=== PATIENT | female | born 1995 | race Two or more races ===

== ENCOUNTER 2017-08-03 19:12 | Emergency (ER) | payer MEDICAID ==
[2017-08-03 19:34] VITALS: TEMP 99
--- NOTE | 2017-08-03 20:39 | EDPHY ---
H & P Time Seen by Provider: 08/03/17 19:26 HPI/ROS: Chief complaint. Short of breath HPI. 22-year-old female with cough and some shortness of breath the for several weeks. It began when she returned from [place] in mid June. She has not had previous history of lung problems. Cough is nonproductive. Mild shortness of breath especially with cough. No fever. No abdominal pain. She feels that her legs are slightly swollen but does not have calf pain. She is not sure when the swelling in her legs started ROS Constitutional. no fever/chills, no weakness Eyes. no problems with vision ENT. no sore throat, no nasal drainage Cardiovascular. no chest pain Respiratory. Cough and shortness of breath Abdominal. no abdominal pain, no nausea/vomiting, no diarrhea . no problems urinating MS. no calf pain/swelling, no neck/back pain, no joint pain Skin. no rash Lymph. no swollen glands Neuro. no headache, no dizziness, no difficulty walking or with speech Past Medical/Surgical History: Hypothyroid Social History: Single, nonsmoker, no alcohol Smoking Status: Never smoked Physical Exam: General Appearance: Alert well-developed female mild distress vital signs significant for blood pressure elevated at 127 Eyes: Pupils equal and round no pallor or injection. ENT, Mouth: Mucous membranes are moist. Respiratory: No retractions. Mild inspiratory expiratory rhonchi Cardiovascular: Regular rate and rhythm. Gastrointestinal: Abdomen is soft and nontender, no masses, bowel sounds normal. Neurological: Awake and alert, sensory and motor exams grossly normal. Skin: Warm and dry, no rashes. Musculoskeletal: Neck is supple nontender. Extremities symmetrical, full range of motion. No obvious edema or swelling to legs. Psychiatric: Patient is oriented X 3, there is no agitation. Constitutional: Initial Vital Signs Temperature (C) 37.2 C 08/03/17 19:25 Heart Rate 90 08/03/17 19:25 Respiratory Rate 16 08/03/17 19:25 Blood Pressure 181/127 H 08/03/17 19:25 O2 Sat (%) 93 08/03/17 19:25 O2 Delivery Mode Room Air Allergies/Adverse Reactions: No Known Allergies Allergy (Verified 08/03/17 19:30) Home Medications: Medication Instructions Recorded Levothyroxine [Synthroid 25 mcg 03/23/14 (*)] Azithromycin [Zithromax] 250 mg PO DAILY #6 tab 08/03/17 Medical Decision Making - Diagnostics Imaging Results: Chest x-ray shows a right lower lobe pneumonia Procedures: Meghan morales ED Course/Re-evaluation: Re-evaluation 9:40 p.m. patient is stable. She and I discussed imaging study results, treatment plan including criteria for return importance of follow-up and further evaluation. She expresses understanding and agreement She shows me blood pressure pills that have been prescribed 1 on August 01 and 1 on August 02 1 his lisinopril and 1 as amlodipine. She has a new diagnosis of hypertension and has never taken blood pressure medications before. She and I discussed taking the amlodipine at but not the lisinopril for 1 week and having her Blood pressure recheck. 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 Pneumonia on chest x-ray new onset hypertension. - Data Points Medications Given: Discontinued Medications Albuterol/Ipratropium (Duoneb) 3 ml IH EDNOW ONE Stop: 08/03/17 20:43 Last Admin: 08/03/17 20:44 Dose: 3 ml Departure - Departure Disposition: Home, Routine, Self-Care Clinical Impression: Pneumonia Qualifiers: Pneumonia type: due to unspecified organism Laterality: right Lung location: lower lobe of lung Qualified Code(s): J18.1 - Lobar pneumonia, unspecified organism Condition: Good Instructions: Community Acquired Pneumonia (ED), Hypertension (ED) Additional Instructions: Drink plenty of fluids and stay hydrated. Tylenol 1000 mg every 6 hr for fever. Zithromax as antibiotic. Only take the amlodipine medication for blood pressure as prescribed. [facility] and have your blood pressure recheck to to see if you really need to blood pressure pills. Return sooner over the weekend for worsening breathing. Referrals: NONE *PRIMARY CARE P,. [Primary Care Provider] - As per Instructions [facility] [Outside] - 5-7 days, call for appt. Prescriptions: Azithromycin [Zithromax] 250 mg PO DAILY #6 tab
[2017-08-03] MEDS ORDERED: IPRATROPIUM/ALBUTEROL 3 ML DEYVIAL IH ONE (20:42)
[2017-08-03 21:00] VITALS: RESP 20
[2017-08-03] MEDS ORDERED: AZITHROMYCIN 250 MG TAB PO ONE (21:54)
[2017-08-03] MEDS ORDERED: ALBUTEROL INH PREPACK MDI TAKEHOME ONE (21:55)
[2017-08-03 22:07] VITALS: BP 164/109; PULSE 86; O2SAT 98
== END 2017-08-03 22:05 | disposition home or self-care (01) ==
DX: J18.1 Lobar pneumonia, unspecified organism (principal)

== ENCOUNTER 2017-08-23 16:30 | Observation (INO) | payer MEDICAID ==
[2017-08-23] MEDS ORDERED: ONDANSETRON 4 MG/2 ML VIAL IVP ONE (17:16)
[2017-08-23] MEDS ORDERED: NS 1,000 ML IV ONE ×2 (17:16→18:07)
[2017-08-23] MEDS ORDERED: HYOSCYAMINE SULFATE 0.125 MG TAB PO ONE (17:16)
[2017-08-23] MEDS ORDERED: LIDOCAINE 2% VISCOUS 15 ML UDCUP PO ONE (17:16)
[2017-08-23] MEDS ORDERED: PANTOPRAZOLE SODIUM 40 MG VIAL IVP ONE (17:16)
[2017-08-23] MEDS ORDERED: MAG HYDROX/AL HYDROX/SIMETH 30 ML UDCUP PO ONE (17:16)
--- NOTE | 2017-08-23 17:25 | EDPHY ---
H & P Stated Complaint: n/v - Personal History LMP (Females 10-55): Over 28 Days Ago Current Tetanus/Diphtheria Vaccine: Yes Current Tetanus Diphtheria and Acellular Pertussis (TDAP): Yes - Medical/Surgical History Hx Asthma: No Hx Chronic Respiratory Disease: No Hx Diabetes: No Hx Cardiac Disease: No Hx Renal Disease: No Hx Cirrhosis: No Hx Alcoholism: No Hx HIV/AIDS: No Hx Splenectomy or Spleen Trauma: No Other PMH: HYPOTHYROIDISM, HTN - Social History Smoking Status: Never smoked HPI/ROS: Chief complaint: Abdominal pain with nausea and vomiting History of present illness: This is a 22-year-old female who presents to the emergency department for evaluation of abdominal pain. She has had associated persistent nausea and vomiting, described as nonbloody, nonbilious. Symptoms began yesterday. They have been persistent. She has been unable to eat or drink anything. She denies fever. She denies diarrhea or constipation. She denies urinary symptoms. Review of systems: A 10 point review of systems was obtained and other than described above was negative (Robert Lebron) - Physical Exam Exam: General Appearance: Alert, nontoxic. Eyes: Pupils equal and round no pallor or injection. ENT, Mouth: Mucous membranes moist. Respiratory: There are no retractions, lungs are clear to auscultation. Cardiovascular: Regular rate and rhythm. Gastrointestinal: Bowel sounds normal. Abdomen is soft and nondistended. Minor tenderness in the upper left and right quadrants. No peritoneal signs. Neurological: Alert and oriented x4. Strength and sensation intact and symmetrical. Skin: Warm and dry, no rashes. Musculoskeletal: Neck is supple non tender. Extremities are symmetrical, full range of motion. Psychiatric: Patient is oriented X 3, there is no agitation. (Robert Lebron) Constitutional: Initial Vital Signs Temperature (C) 37.1 C 08/23/17 16:47 Heart Rate 88 08/23/17 16:47 Respiratory Rate 18 08/23/17 16:47 Blood Pressure 159/119 H 08/23/17 16:47 O2 Sat (%) 99 08/23/17 16:47 O2 Delivery Mode Room Air Allergies/Adverse Reactions: No Known Allergies Allergy (Verified 08/23/17 16:45) Home Medications: Medication Instructions Recorded Carvedilol [Coreg] 12.5 mg PO BIDMEAL 08/23/17 Ferrous Sulfate [Ferrous Sulf 325 325 mg PO DAILY 08/23/17 MG (*)] Levothyroxine [Synthroid 150 mcg 150 mcg PO DAILY06 08/23/17 (*)] amLODIPine BESYLATE [Norvasc 10 mg 10 mg PO DAILY 08/23/17 (*)] hydrALAZINE [Apresoline 50 mg (*)] 50 mg PO TID 08/23/17 Ondansetron Odt [Zofran Odt 4 mg 4 mg PO Q4 #15 tab 08/24/17 (*)] Pantoprazole Sodium [Protonix 40mg 40 mg PO BID #60 tab 08/24/17 (*)] Medical Decision Making - Diagnostics Imaging: Discussed imaging studies w/ faculty i on call medical assistant Radiologist ED Course/Re-evaluation: Patient is discussed with my secondary supervising physician Dr. Mary Driver. Patient presents to the emergency department with nausea and vomiting and abdominal discomfort. Workup is largely unremarkable except for an elevated creatinine. She does have an underlying kidney issue and was recently treated for a hypertensive emergency. However it is not clear as to what her baseline creatinine is. She has been hydrated with no improvement in creatinine. She is having difficulty tolerating oral challenges. She will be admitted for control of symptoms, hydration and observation. Plan has been discussed with the patient who voiced understanding agreement with it. (Robert Lebron) Differential Diagnosis: Included but not limited to gastritis, gastroenteritis, biliary tract disease, pancreatitis, colitis, urinary tract disease, an associated complications (Robert Lebron) Other Provider: The patient was evaluated and managed by the Physician Assistant Child Care Teacher. I discussed the patient's presentation and course with the physician assistant producer and agree with the evaluation. My co-signature indicates that I have reviewed this chart and I agree with the findings and plan of care as documented. I am the secondary supervising physician. (Mary Driver) - Data Points Laboratory Results: Laboratory Results 08/23/17 17:25 08/23/17 19:35 Medications Given: Discontinued Medications Al Hydroxide/Mg Hydroxide (Maalox Susp) 30 ml PO ONCE ONE Stop: 08/23/17 17:17 Last Admin: 08/23/17 17:41 Dose: 30 ml Amlodipine Besylate (Norvasc) 10 mg PO DAILY GARRETT Stop: 02/20/18 08:59 Last Admin: 08/24/17 09:22 Dose: 10 mg Ferrous Sulfate (Ferrous Sulfate) 325 mg PO DAILY GARRETT Stop: 02/20/18 08:59 Last Admin: 08/24/17 09:22 Dose: 325 mg Hydralazine HCl (Apresoline) 50 mg PO TID GARRETT Stop: 02/20/18 08:59 Last Admin: 08/24/17 09:22 Dose: 50 mg Hyoscyamine Sulfate (Levsin, Hyomax-Sl) 0.25 mg PO ONCE ONE Stop: 08/23/17 17:17 Last Admin: 08/23/17 17:41 Dose: 0.25 mg Sodium Chloride (Ns) 1,000 mls @ 0 mls/hr IV EDNOW ONE; Wide Open PRN Reason: Protocol Stop: 08/23/17 17:17 Last Admin: 08/23/17 17:22 Dose: 1,000 mls Sodium Chloride (Ns) 1,000 mls @ 0 mls/hr IV EDNOW ONE; Wide Open PRN Reason: Protocol Stop: 08/23/17 18:08 Last Admin: 08/23/17 18:29 Dose: 1,000 mls Sodium Chloride (Ns) 1,000 mls @ 150 mls/hr IV CONT GARRETT Stop: 02/19/18 21:44 Last Admin: 08/23/17 22:11 Dose: 1,000 mls Levothyroxine Sodium (Synthroid) 150 mcg PO DAILY06 GARRETT Stop: 02/20/18 08:44 Last Admin: 08/24/17 10:33 Dose: Not Given Lidocaine (Lidocaine 2% Viscous) 15 ml PO ONCE ONE Stop: 08/23/17 17:17 Last Admin: 08/23/17 17:41 Dose: 15 ml Ondansetron HCl (Zofran) 4 mg IVP EDNOW ONE Stop: 08/23/17 17:17 Last Admin: 08/23/17 17:40 Dose: 4 mg Pantoprazole Sodium (Protonix) 40 mg IVP EDNOW ONE Stop: 08/23/17 17:17 Last Admin: 08/23/17 17:41 Dose: 40 mg Pantoprazole Sodium (Protonix) 40 mg PO BID GARRETT Stop: 02/20/18 08:59 Last Admin: 08/24/17 09:22 Dose: 40 mg Departure - Departure Disposition: [facility] Clinical Impression: Dehydration, Renal insufficiency Condition: Good
[2017-08-23 17:38] LABS: PLATELET COUNT 271 10^3/uL (150-400)
[2017-08-23] MEDS ORDERED: hydrALAZINE 20 MG/ML VIAL IVP PRN (21:44)
[2017-08-23] MEDS ORDERED: ONDANSETRON DISINTEGRATING 4 MG TAB PO PRN (21:45)
[2017-08-23] MEDS ORDERED: NS 1,000 ML IV SCH (21:45)
[2017-08-23] MEDS ORDERED: ONDANSETRON 4 MG/2 ML VIAL IVP PRN (21:45)
[2017-08-23] MEDS ORDERED: ACETAMINOPHEN 325 MG TAB PO PRN (21:45)
--- NOTE | 2017-08-23 21:53 | PDGENHP ---
History and Physical - Chief Complaint abd pain - History of Present Illness This is a 22 yo female who p/w LUQ and mid epigastric abd pain since yesterday with several episodes of vomiting and inability to keep foods down. She has had minimal oral intake. She denies RUQ pain. [facility] and sent to [facility] ED for HTN urgency. There she reports that she had extensive w/u and was diagnosed with renal disease although she cannot provide details about this. She reports that was started on various BP meds and she has a f/u with a learning coordinator late this month. She does not recall what w/u was done or who the learning coordinator is although she does report cat scans. In the ED she was given IVF, protonix, Levsin, and feels slightly better. Hcg was negative. RUQ US showed hepatomegaly but otherwise unremarkable. Right kidney was visualized and appeared within normal. No GB pathology. Left kidney was not reported on. UA was negative She denies diarrhea or constipation. she denies hx of GERD. She does not have any throat burning sensation. She says she is urinating her normal amount and that it has not been concentrated PMHx: -HTN, unknown etiology -Renal impairment (unknown Cr baseline) -Hypothyroidism -Iron deficiency anemia PSHx: none Soc Hx: non smoker, no etoh, no illicits FmHx: Non contributory Labs/studies: per above History Information - Allergies/Home Medication List Allergies/Adverse Reactions: No Known Allergies Allergy (Verified 08/23/17 16:45) Home Medications: Levothyroxine [Synthroid 25 mcg (*)] 03/23/14 [Last Taken Unknown] Amlodipine Besylate 08/23/17 [Last Taken Unknown] Carvedilol 08/23/17 [Last Taken Unknown] Ferrous Sulfate 08/23/17 [Last Taken Unknown] hydrALAZINE 08/23/17 [Last Taken Unknown] I have personally reviewed and updated: medical history, social history - Social History Smoking Status: Never smoked Review of Systems Review of Systems: ROS: 10pt was reviewed & negative except for what was stated in HPI & below Physical Exam Physical Exam: Temp Pulse Resp BP Pulse Ox 36.9 C 71 18 144/97 H 100 08/23/17 21:17 08/23/17 21:17 08/23/17 21:17 02/01/18 21:17 08/23/17 21:17 Constitutional: no apparent distress, not in pain Eyes: PERRL, EOMI Ears, Nose, Mouth, Throat: moist mucous membranes, hearing normal Cardiovascular: regular rate and rhythym, No edema Respiratory: no respiratory distress, no rales or rhonchi Gastrointestinal: normoactive bowel sounds, tenderness (LUQ and mid epigastric TTP. No RUQ tenderness. No RLQ tenderness) Genitourinary: no bladder fullness Skin: warm Musculoskeletal: full muscle strength Neurologic: AAOx3 Psychiatric: interacting appropriately, not anxious, not encephalopathic Lab Data & Imaging Review 08/23/17 17:25 08/23/17 19:35 WBC 8.15 10^3/uL (3.80-9.50) 08/23/17 17:25 RBC 3.71 10^6/uL (4.18-5.33) L 08/23/17 17:25 Hgb 11.2 g/dL (12.6-16.3) L 08/23/17 17:25 Hct 31.7 % (38.0-47.0) L 08/23/17 17:25 MCV 85.4 fL (81.5-99.8) 08/23/17 17:25 MCH 30.2 pg (27.9-34.1) 08/23/17 17:25 MCHC 35.3 g/dL (32.4-36.7) 08/23/17 17:25 RDW 14.2 % (11.5-15.2) 08/23/17 17:25 Plt Count 271 10^3/uL (150-400) 08/23/17 17:25 MPV 10.9 fL (8.7-11.7) 08/23/17 17:25 Neut % (Auto) 74.3 % (39.3-74.2) H 08/23/17 17:25 Lymph % (Auto) 14.2 % (15.0-45.0) L 08/23/17 17:25 [place] % (Auto) 9.3 % (4.5-13.0) 08/23/17 17:25 Eos % (Auto) 0.7 % (0.6-7.6) 08/23/17 17:25 Baso % (Auto) 0.9 % (0.3-1.7) 08/23/17 17:25 Nucleat RBC Rel Count 0.0 % (0.0-0.2) 08/23/17 17:25 Absolute Neuts (auto) 6.05 10^3/uL (1.70-6.50) 08/23/17 17:25 Absolute Lymphs (auto) 1.16 10^3/uL (1.00-3.00) 08/23/17 17:25 Absolute Monos (auto) 0.76 10^3/uL (0.30-0.80) 08/23/17 17:25 Absolute Eos (auto) 0.06 10^3/uL (0.03-0.40) 08/23/17 17:25 Absolute Basos (auto) 0.07 10^3/uL (0.02-0.10) 08/23/17 17:25 Absolute Nucleated RBC 0.00 10^3/uL (0-0.01) 08/23/17 17:25 Immature Gran % 0.6 % (0.0-1.1) 08/23/17 17:25 Immature Gran # 0.05 10^3/uL (0.00-0.10) 08/23/17 17:25 Sodium 136 mEq/L (135-145) 08/23/17 19:35 Potassium 3.7 mEq/L (3.5-5.2) 08/23/17 19:35 Chloride 104 mEq/L (97-110) 08/23/17 19:35 Carbon Dioxide 21 mEq/l (22-31) L 08/23/17 19:35 Anion Gap 11 mEq/L (8-16) 08/23/17 19:35 BUN 19 mg/dL (7-23) 08/23/17 19:35 Creatinine 2.0 mg/dL (0.6-1.0) H 08/23/17 19:35 Estimated GFR 31 08/23/17 19:35 Glucose 88 mg/dL (70-100) 08/23/17 19:35 Calcium 8.5 mg/dL (8.5-10.4) 08/23/17 19:35 Total Bilirubin 1.2 mg/dL (0.1-1.4) 08/23/17 17:25 Conjugated Bilirubin 0.3 mg/dL (0.0-0.5) 08/23/17 17:25 Unconjugated Bilirubin 0.9 mg/dL (0.0-1.1) 08/23/17 17:25 AST 26 IU/L (14-46) 08/23/17 17:25 ALT 40 IU/L (9-52) 08/23/17 17:25 Alkaline Phosphatase 104 IU/L (38-126) 08/23/17 17:25 Total Protein 7.0 g/dL (6.3-8.2) 08/23/17 17:25 Albumin 4.1 g/dL (3.5-5.0) 08/23/17 17:25 Lipase 121 IU/L (23-300) 08/23/17 17:25 Beta HCG, Qual NEGATIVE 08/23/17 17:25 Urine Color PALE YELLOW 08/23/17 16:50 Urine Appearance CLEAR 08/23/17 16:50 Urine pH 8.0 (5.0-7.5) H 08/23/17 16:50 Ur Specific [place] 1.004 (1.002-1.030) 08/23/17 16:50 Urine Protein 2+ (NEGATIVE) H 08/23/17 16:50 Urine Ketones NEGATIVE (NEGATIVE) 08/23/17 16:50 Urine Blood NEGATIVE (NEGATIVE) 08/23/17 16:50 Urine Nitrate NEGATIVE (NEGATIVE) 08/23/17 16:50 Urine Bilirubin NEGATIVE (NEGATIVE) 08/23/17 16:50 Urine Urobilinogen NEGATIVE EU (0.2-1.0) 08/23/17 16:50 Ur Leukocyte Esterase NEGATIVE (NEGATIVE) 08/23/17 16:50 Urine RBC 1-3 /hpf (0-3) 08/23/17 16:50 Urine WBC 1-3 /hpf (0-3) 08/23/17 16:50 Ur Epithelial Cells TRACE /lpf (NONE-1+) 08/23/17 16:50 Urine Bacteria 1+ /hpf (NONE SEEN) H 08/23/17 16:50 Urine Glucose 1+ (NEGATIVE) H 08/23/17 16:50 Assessment & Plan Assessment: #Abd pain of unclear etiology #Nause and vomiting, improving #Hepatomegaly on imaging, normal LFT's #Dehydration, improving #HTN #likely chronic renal failure, no elevation of BUN #Anemia, normal MCV, on iron supplementation #Hypothyroidism Plan: Observation Her Cr is likely at baseline but we will need to check records in the a.m. She already has f/u with a Production Inspector. the Family is obtaining the physicians name. I will defer additional w/u other than urine studies for now Cont with BP meds, hydralazine IV PRN elevated BP Start Protonix BID. Etiology is unclear. She no longer is reporting N/V after receiving IV hydration. Will cont with IV hydration for now. Antiemetics PRN Hold the Iron as this could be causing some abd discomfort, although doubtful. She does have slight anemia, but MCV is normal.
[2017-08-23 23:15] LABS: INR 1.14 (0.83-1.16); PROTIME(PATIENT) 14.8 SEC (12.0-15.0)
[2017-08-24 05:24] LABS: PLATELET COUNT 217 10^3/uL (150-400)
[2017-08-24] MEDS ORDERED: LEVOTHYROXINE 150 MCG TAB PO SCH (08:45)
[2017-08-24] MEDS ORDERED: PANTOPRAZOLE SODIUM 40 MG TAB PO SCH (09:00)
[2017-08-24] MEDS ORDERED: FERROUS SULFATE 325 MG TAB PO SCH (09:00)
[2017-08-24 11:47] VITALS: BP 132/93; PULSE 80; RESP 18; TEMP 98.6; O2SAT 97
--- NOTE | 2017-08-24 16:31 | GDS ---
[f rep st] DISCHARGE SUMMARY DISCHARGE DIAGNOSES: 1. Hypertension. 2. Abdominal pain. 3. Nausea and vomiting. 4. Hepatomegaly. 5. Dehydration. 6. Likely, chronic renal failure. 7. Anemia. 8. Hypothyroidism. STUDIES AND PROCEDURES DONE: Abdominal ultrasound. PHYSICAL EXAM: GENERAL: The patient is alert. VITAL SIGNS: Afebrile at 37, pulse is 80, respirato ry rate is 18, blood pressure is 132/93. She is saturating 97% on room air. I have seen and evaluat ed the patient on the day of discharge. HOSPITAL COURSE: The patient is a 22-year-old female who presented to the emergency room with compla ints of abdominal pain with nausea and vomiting. She was evaluated and diagnosed with: 1. Abdominal pain. Etiology of this is unclear; however, it is completely resolved. She is tolerat ing a regular renal diet. She has had no further bouts of nausea and vomiting, and her pain is compl etely gone. 2. Hepatomegaly on imaging. The patient does have normal LFTs, and will follow up in the outpatient setting with [facility]. 3. Dehydration. This has resolved with IV fluids. 4. Hypertension. This is a new diagnosis for the patient. The etiology of her hypertension is uncl ear and requires further workup in the outpatient setting. Her blood pressure has been well managed during this hospitalization. She is able to tolerate her regular antihypertensive medications and wi ll continue them at the time of disposition. 5. Chronic renal failure. This is in the setting of severe hypertension, which is again a new diagn osis. She did receive a consultation previously from Nephrology. Her creatinine is 2, which is like ly her baseline. She will follow up on 09/12/2017, with a wholesale representative whom she has previously sched uled with. I have expressed to her to continue aggressive hydration. She has also met with the alanis moreno to continue to follow a renal diet in the outpatient setting. She understands the severity of t his. I have educated her with the auto inspection specialist, and she is in agreement to follow up in the o utpatient setting. 6. Anemia, again in the setting of iron deficiency and chronic renal failure. She has been on iron replacement and will have this monitored outside the hospital. 7. Hypothyroidism. Again, her replacement has been continued. DISPOSITION: The patient will be discharged home independently with her family. She has returned to baseline. DISCHARGE MEDICATIONS: I provided her a prescription for Zofran as well as Protonix 40 mg twice galilea y. Other medications have not been adjusted during this hospitalization. FOLLOWUP: She will follow up with [facility] on Sunday, as previously scheduled, as well as he r cardiology appointment and the wholesale representative on the . Again, I have educated and met with the luz cotton, with the auto inspection specialist and her parents. /[id number]/MODL
--- NOTE | 2017-08-24 17:39 | ASDISCHSUM ---
Discharge Information Plan Status:Home with No Needs Medically Cleared to Leave: Discharge Date:08/24/2017 01:11 PM CM D/C Disposition:Home, Routine, Self-Care ADT D/C Disposition:Home, Routine, Self-Care Projected Discharge Date:08/24/2017 01:11 PM Transportation at D/C:Family Discharge Delay Reason: Follow-Up Date:08/24/2017 01:11 PM Discharge Slot: Final Diagnosis: Placement Information Patient Contact Information Contact Name:MEENU Relationship:Father Address: City: [facility] Phone: [facility] Code: Email: Financial Information Financial Class:MD Primary Plan Desc:MEDICAID HE[employer] [place] FOR[employer] Primary Plan Number:[id number] Secondary Plan Desc: Secondary Plan Number: Assessment Information Intervention Information
[2017-08-24] MEDS ORDERED: CARVEDILOL 6.25 MG TAB PO SCH (18:00)
[2017-08-24] MEDS ORDERED: NON-FORMULARY NEW DRUG (Carvedilol [Coreg] 12.5 MG) PO SCH (18:00)
== END 2017-08-24 13:11 | disposition home or self-care (01) ==
LOC: F3E 21:10
PROVIDERS: ADMIT Family Medicine; ATTEND Family Medicine
DX: R10.9 Unspecified abdominal pain (principal); R11.2 Nausea with vomiting, unspecified; E86.0 Dehydration; R16.0 Hepatomegaly, not elsewhere classified; N18.9 Chronic kidney disease, unspecified; I10 Essential (primary) hypertension; D64.9 Anemia, unspecified; E03.9 Hypothyroidism, unspecified
CPT/HCPCS: 76705; G0378; 96374; J2405

== ENCOUNTER 2018-07-29 08:07 | Inpatient (IN) | payer MEDICAID ==
--- NOTE | 2018-07-29 09:06 | EDPHY ---
H & P Stated Complaint: fever/cough in [place], 24hr drive yest, SOB and bilat leg swell Source: Patient, Old records Exam Limitations: No limitations - Personal History Current Tetanus/Diphtheria Vaccine: Unsure - Medical/Surgical History Hx Asthma: No Hx Chronic Respiratory Disease: No Hx Diabetes: No Hx Cardiac Disease: No Hx Renal Disease: No Hx Cirrhosis: No Hx Alcoholism: No Hx HIV/AIDS: No Hx Splenectomy or Spleen Trauma: No Other PMH: HYPOTHYROIDISM, HTN - Social History Smoking Status: Never smoked Time Seen by Provider: 07/29/18 09:03 HPI/ROS: HPI: This is a 23-year-old female who presents with Chief Complaint: fever/cough in [place], 24hr drive yest, SOB and bilat leg swell Location: Chest Quality: Cough Duration: Several days Signs and Symptoms: + fever, no nausea, no vomiting, no diarrhea, no urinary symptoms, no chest pain, + shortness of breath, no wheezing, no sore throat, no neck stiffness, no joint pain, no swollen glands, no ear pain, no rash Timing: Acute, constant Severity: Moderate Context: Patient has a history of hypothyroidism, hypertension, chronic kidney disease secondary to uncontrolled blood pressure presents today with several day history of fever and nonproductive cough with associated shortness of breath and bilateral leg swelling. She recently drove 24 hr yesterday from [place] to [facility]. She was placed on new blood pressure medications while in [place] but has not taking blood pressure medications this morning. She reports that she did receive her influenza vaccine. Patient complains of abdominal bloating and swelling. Chart review shows that admission in August showed uncontrolled hypertension which was a new diagnosis along with chronic kidney disease. Creatinine baseline appears to be around 2. Ultrasound did not showed mild hepatomegaly. Modifying Factors: See above Comment: ROS: A comprehensive 10 system review of systems is otherwise negative aside from elements mentioned in the history of present illness. MEDICAL/SURGICAL/SOCIAL HISTORY: Medical history: Hypothyroidism, hypertension, chronic kidney disease Surgical history: Denies Social history: Nonsmoker, denies drug, alcohol, tobacco use. Family history noncontributory. CONSTITUTIONAL: Ill but nontoxic-appearing young adult female, awake and alert, no obvious distress HEENT: Atraumatic and normocephalic, PERRL, EOMI. Nares patent; no rhinorrhea; no nasal mucosal edema. Tympanic membranes clear. Oropharynx clear, no exudate and moist pink mucosa. Airway patent. No lymphadenopathy. No meningismus. Cardiovascular: Normal S1/S2, regular rate, regular rhythm, without rub or gallop. + murmur appreciated PULMONARY/CHEST: Symmetrical and nontender. Clear to auscultation bilaterally. Good air movement. No accessory muscle usage. Dry cough noted ABDOMEN: Soft, nondistended, nontender, no rebound, no guarding, no peritoneal signs, no masses or organomegaly. No CVAT. EXTREMITIES: 2/2 pulses, strength 5/5, no deformities, no clubbing, no cyanosis. 2+ pitting edema to mid tibia bilateral lower extremities NEUROLOGICAL: no focal neuro deficits. GCS 15. SKIN: Warm and dry, no erythema. no rash. Good capillary refill. (Megha Echols) Constitutional: Initial Vital Signs Temperature (C) 36.4 C 07/29/18 08:10 Heart Rate 72 07/29/18 08:10 Respiratory Rate 16 07/29/18 08:10 Blood Pressure 160/107 H 07/29/18 08:10 O2 Sat (%) 96 07/29/18 08:10 O2 Delivery Mode Room Air Allergies/Adverse Reactions: No Known Allergies Allergy (Verified 07/29/18 08:10) Home Medications: Medication Instructions Recorded Levothyroxine [Synthroid 150 mcg 150 mcg PO DAILY06 08/23/17 (*)] hydrALAZINE [Apresoline 50 mg (*)] 50 mg PO TID 08/23/17 Carvedilol [Coreg (*)] 25 mg PO DAILY 07/29/18 Verapamil ER [Calan SR/ER 180MG 180 mg PO DAILY 07/29/18 (*)] Medical Decision Making ED Course/Re-evaluation: Vital signs reviewed and show elevated blood pressure upon arrival. No hypoxia , respiratory distress. IV access, laboratory studies including lactic acid, chest x-ray, urinalysis, influenza swabs ordered 1015: Chest x-ray per Dr. Perry shows cardiomegaly any recommends an echocardiogram, peribronchial thickening and left lower lobe infiltrate 1019: Blood cultures and IV Rocephin and Zithromax ordered 1022: Labs reviewed. No leukocytosis, H&H 7.4/21.7 normocytic type, lactic acid 0.8, sodium 128, potassium 2.9, creatinine 4.0 Given 1 L normal saline and p.o. Potassium 40 mEq ED decision to consult hospitalist. Spoke with Breanne who kindly agrees to admit patient to Dr. Lees on step-down unit with telemetry. 1052: Positive influenza a 1155: ProBNP is 94,800. IV fluids given due to acute on chronic renal failure with community-acquired pneumonia. Will definitely need echocardiogram inpatient. This patient was seen under the supervision of my secondary supervising physician. I evaluated care for this patient independently. Discussed this patient with Dr. Driver who did not see the patient. (Megha Echols) Differential Diagnosis: Adult fever including but not limited to viral syndromes including influenza, urinary tract infection, pneumonia and sepsis. (Megha Echols) Other Provider: The patient was evaluated and managed by the Phys[facility] Specialist. I discussed the patient's presentation and course with the physician intellectual property legal assistant and agree with the evaluation. My co-signature indicates that I have reviewed this chart and I agree with the findings and plan of care as documented. I am the secondary supervising physician. (Mary Driver) - Data Points Laboratory Results: Laboratory Results 07/29/18 08:50 07/29/18 10:05 Microbiology Results: MICROBIOLOGY 07/29/18 10:35 Blood Blood Culture - Preliminary Medications Given: Amlodipine Besylate (Norvasc) 5 mg PO BID GARRETT Stop: 01/26/19 20:59 Last Admin: 07/31/18 07:57 Dose: 5 mg Benzonatate (Tessalon Pearles) 200 mg PO TID PRN PRN Reason: Cough, Mild Stop: 01/25/19 23:32 Last Admin: 07/30/18 20:06 Dose: 200 mg Furosemide (Lasix Injection) 40 mg IVP DAILY GARRETT Stop: 01/27/19 08:59 Last Admin: 07/31/18 07:57 Dose: 40 mg Heparin Sodium (Porcine) (Heparin Sc Injection) 5,000 unit SC Q8 GARRETT Stop: 01/25/19 13:59 Last Admin: 07/30/18 05:46 Dose: 5,000 unit Hydralazine HCl (Apresoline) 50 mg PO TID GARRETT Stop: 01/26/19 15:59 Last Admin: 07/31/18 07:58 Dose: 50 mg Levothyroxine Sodium (Synthroid) 150 mcg PO DAILY06 [facility] Stop: 01/26/19 09:59 Last Admin: 07/31/18 06:36 Dose: 150 mcg Oseltamivir Phosphate (Tamiflu Oral Suspension) 30 mg PO DAILY [facility] Stop: 08/03/18 09:01 Last Admin: 07/31/18 08:05 Dose: 30 mg Sodium Bicarbonate (Na Bicarb) 1,300 mg PO BID [facility] Stop: 01/25/19 20:59 Last Admin: 07/31/18 07:57 Dose: 1,300 mg Discontinued Medications Amlodipine Besylate (Norvasc) 5 mg PO DAILY [facility] Stop: 01/25/19 15:14 Last Admin: 07/30/18 08:27 Dose: 5 mg Carvedilol (Coreg) 6.25 mg PO BIDMEAL [facility] Stop: 01/25/19 17:59 Last Admin: 07/30/18 08:27 Dose: 6.25 mg Carvedilol (Coreg) 6.25 mg PO ONCE ONE Stop: 07/30/18 09:31 Last Admin: 07/30/18 09:45 Dose: 6.25 mg Carvedilol (Coreg) 12.5 mg PO BIDMEAL [facility] Stop: 01/26/19 17:59 Last Admin: 07/31/18 07:57 Dose: 12.5 mg Carvedilol (Coreg) 12.5 mg PO ONCE ONE Stop: 07/31/18 11:01 Last Admin: 07/31/18 11:36 Dose: 12.5 mg Furosemide (Lasix Injection) 20 mg IVP ONCE ONE Stop: 07/29/18 23:31 Last Admin: 07/29/18 23:31 Dose: 20 mg Furosemide (Lasix Injection) 40 mg IVP ONCE ONE Stop: 07/30/18 13:36 Last Admin: 07/30/18 14:49 Dose: 40 mg Hydralazine HCl (Apresoline) 25 mg PO Q6H PRN PRN Reason: SBP Greater Than 160 Stop: 01/25/19 15:13 Last Admin: 07/30/18 05:48 Dose: 25 mg Azithromycin 500 mg/ Dextrose 255 mls @ 255 mls/hr IV EDNOW ONE PRN Reason: Protocol Stop: 07/29/18 11:17 Last Admin: 07/29/18 11:41 Dose: 255 mls Ceftriaxone Sodium 2 gm/ (Sodium Chloride) 50 mls @ 100 mls/hr IV EDNOW ONE PRN Reason: Protocol Stop: 07/29/18 10:47 Last Admin: 07/29/18 11:41 Dose: 50 mls Sodium Chloride (Ns) 1,000 mls @ 0 mls/hr IV EDNOW ONE; Wide Open PRN Reason: Protocol Stop: 07/29/18 10:38 Last Admin: 07/29/18 10:57 Dose: 1,000 mls Magnesium Sulfate/Dextrose (Magnesium Sulf 1 Gm (Premix)) 100 mls @ 100 mls/hr IV ONCE ONE Stop: 07/29/18 18:18 Last Admin: 07/29/18 18:18 Dose: 100 mls Ondansetron HCl (Zofran) 4 mg IVP Q4HRS PRN PRN Reason: Nausea/Vomiting, Can't Take PO Stop: 01/25/19 11:23 Last Admin: 07/30/18 08:27 Dose: 4 mg Potassium Chloride (Klor-Con) 40 meq PO ONCE ONE Stop: 07/29/18 10:38 Last Admin: 07/29/18 10:57 Dose: 40 meq Potassium Chloride (Klor-Con) 40 meq PO ONCE ONE Stop: 07/29/18 17:24 Last Admin: 07/29/18 18:18 Dose: 40 meq Departure - Departure Disposition: [facility] Inpatient Acute Clinical Impression: Community acquired pneumonia, Normocytic anemia, not due to blood loss, Hypokalemia, Hyponatremia, Hypertensive cardiomegaly, Influenza A Acute on chronic renal failure Qualifiers: Acute renal failure type: unspecified Chronic kidney disease stage: unspecified stage Qualified Code(s): N17.9 - Acute kidney failure, unspecified Condition: Fair
[2018-07-29 09:11] LABS: PLATELET COUNT 257 10^3/uL (150-400)
[2018-07-29] MEDS ORDERED: AZITHROMYCIN IV 500 MG in D5W 250 ML IV ONE (10:18)
[2018-07-29] MEDS ORDERED: POTASSIUM CL 20 MEQ TAB PO ONE ×2 (10:37→17:23)
[2018-07-29] MEDS ORDERED: NS 1,000 ML IV ONE (10:37)
[2018-07-29] MEDS ORDERED: ONDANSETRON DISINTEGRATING 4 MG TAB PO PRN (11:24)
[2018-07-29] MEDS ORDERED: ONDANSETRON 4 MG/2 ML VIAL IVP PRN (11:24)
--- NOTE | 2018-07-29 12:50 | PDGENHP ---
History and Physical - Chief Complaint swelling, shortness of breath - History of Present Illness Kailey Lund is a 23 year old female with pmh of persistent hypertension, hypothyroid and CKD who presents to the Er with complaints of lower extremity swelling along with cough, shortness of breath and abdominal bloating. she says that over the last 1-2 weeks she has had progressive leg swelling along with some abdominal distension and progressive shortness of breath. Her shortness of breath is primarily with exertion. she has had some cough which is mostly non productive. she denied any orthopnea, or PND. She was just in [place] for the last few weeks in [place], and while there developed an ear infection and URI infection. She saw a physician there and was given a Rx for keflex and otic abx drops. Her ear infection has gotten better but she does not feel that her breathing or swelling has gotten better. she does not have any chest pain. she denied any NV, diarrhea, dysuria, hematuria, melena, hematochezia or other symptoms. History Information - Allergies/Home Medication List Allergies/Adverse Reactions: No Known Allergies Allergy (Verified 07/29/18 08:10) Home Medications: Levothyroxine [Synthroid 150 mcg (*)] 150 mcg PO DAILY06 08/23/17 [Last Taken ] hydrALAZINE [Apresoline 50 mg (*)] 50 mg PO TID 08/23/17 [Last Taken 07/28/18] Carvedilol [Coreg (*)] 25 mg PO DAILY 07/29/18 [Last Taken 07/28/18] Verapamil ER [Calan SR/ER 180MG (*)] 180 mg PO DAILY 07/29/18 [Last Taken ] I have personally reviewed and updated: family history, medical history, social history, surgical history - Past Medical History hypertension Additional medical history: hypothyroid, CKD - Surgical History Reports: no pertinent surgical hx - Family History Positive for: non-pertinent - Social History Smoking Status: Never smoked Alcohol Use: None Drug Use: None Review of Systems Review of Systems: ROS: 10pt was reviewed & negative except for what was stated in HPI & below Physical Exam Physical Exam: Temp Pulse Resp BP Pulse Ox 36.7 C 76 16 168/124 H 98 07/29/18 11:44 07/29/18 11:44 07/29/18 11:44 07/29/18 11:44 07/29/18 11:44 Constitutional: no apparent distress, appears nourished, not in pain Eyes: PERRL, anicteric sclera, EOMI Ears, Nose, Mouth, Throat: moist mucous membranes, hearing normal, ears appear normal, no oral mucosal ulcers Cardiovascular: No edema Peripheral Pulses: 2+: dorsalis-pedis (R), dorsalis-pedis (L) Respiratory: no respiratory distress, other (crackles at bases BL) Gastrointestinal: normoactive bowel sounds, soft, non-tender abdomen, no palpable masses Genitourinary: no bladder fullness, no bladder tenderness Skin: warm, normal color, no rashes or abrasions, no fluctuance, no induration, No mottled Musculoskeletal: full muscle strength, no muscle tenderness, normal joint ROM, no joint effusions Neurologic: AAOx3, CN II-XII Intact Psychiatric: interacting appropriately, not anxious, not encephalopathic, thought process linear Lymph, Heme, Immunologic: no cervical LAD, no supraclavicular LAD Lab Data & Imaging Review 07/29/18 15:31 07/29/18 15:31 WBC 9.45 10^3/uL (3.80-9.50) 07/29/18 08:50 RBC 2.63 10^6/uL (4.18-5.33) L 07/29/18 08:50 Hgb 7.4 g/dL (12.6-16.3) L 07/29/18 08:50 Hct 21.7 % (38.0-47.0) L 07/29/18 08:50 MCV 82.5 fL (81.5-99.8) 07/29/18 08:50 MCH 28.1 pg (27.9-34.1) 07/29/18 08:50 MCHC 34.1 g/dL (32.4-36.7) 07/29/18 08:50 RDW 15.1 % (11.5-15.2) 07/29/18 08:50 Plt Count 257 10^3/uL (150-400) 07/29/18 08:50 MPV 10.3 fL (8.7-11.7) 07/29/18 08:50 Neut % (Auto) 85.8 % (39.3-74.2) H 07/29/18 08:50 Lymph % (Auto) 8.3 % (15.0-45.0) L 07/29/18 08:50 Yates % (Auto) 4.7 % (4.5-13.0) 07/29/18 08:50 Eos % (Auto) 0.0 % (0.6-7.6) L 07/29/18 08:50 Baso % (Auto) 0.2 % (0.3-1.7) L 07/29/18 08:50 Nucleat RBC Rel Count 0.0 % (0.0-0.2) 07/29/18 08:50 Absolute Neuts (auto) 8.12 10^3/uL (1.70-6.50) H 07/29/18 08:50 Absolute Lymphs (auto) 0.78 10^3/uL (1.00-3.00) L 07/29/18 08:50 Absolute Monos (auto) 0.44 10^3/uL (0.30-0.80) 07/29/18 08:50 Absolute Eos (auto) 0.00 10^3/uL (0.03-0.40) L 07/29/18 08:50 Absolute Basos (auto) 0.02 10^3/uL (0.02-0.10) 07/29/18 08:50 Absolute Nucleated RBC 0.00 10^3/uL (0-0.01) 07/29/18 08:50 Immature Gran % 1.0 % (0.0-1.1) 07/29/18 08:50 Immature Gran # 0.09 10^3/uL (0.00-0.10) 07/29/18 08:50 VBG Lactic Acid 0.8 mmol/L (0.7-2.1) 07/29/18 10:05 Sodium 128 mEq/L (135-145) L 07/29/18 10:05 Potassium 2.9 mEq/L (3.5-5.2) L 07/29/18 10:05 Chloride 100 mEq/L (97-110) 07/29/18 10:05 Carbon Dioxide 20 mEq/l (22-31) L 07/29/18 10:05 Anion Gap 8 mEq/L (6-14) 07/29/18 10:05 BUN 66 mg/dL (7-23) H 07/29/18 10:05 Creatinine 4.0 mg/dL (0.6-1.0) H 07/29/18 10:05 Estimated GFR 14 07/29/18 10:05 Glucose 90 mg/dL (70-100) 07/29/18 10:05 Calcium 7.6 mg/dL (8.5-10.4) L 07/29/18 10:05 Total Bilirubin 0.7 mg/dL (0.1-1.4) 07/29/18 10:05 Conjugated Bilirubin 0.4 mg/dL (0.0-0.5) 07/29/18 10:05 Unconjugated Bilirubin 0.3 mg/dL (0.0-1.1) 07/29/18 10:05 AST 44 IU/L (14-46) 07/29/18 10:05 ALT 35 IU/L (9-52) 07/29/18 10:05 Alkaline Phosphatase 137 IU/L (38-126) H 07/29/18 10:05 NT-Pro-B Natriuret Pep 71034 pg/mL (0-125) H 07/29/18 10:05 Total Protein 5.4 g/dL (6.3-8.2) L 07/29/18 10:05 Albumin 2.6 g/dL (3.5-5.0) L 07/29/18 10:05 Lipase 51 IU/L (23-300) 07/29/18 10:05 Beta HCG, Qual NEGATIVE 07/29/18 10:05 Urine Color PALE YELLOW 07/29/18 12:10 Urine Appearance CLEAR 07/29/18 12:10 Urine pH 6.0 (5.0-7.5) 07/29/18 12:10 Ur Specific [place] 1.009 (1.002-1.030) 07/29/18 12:10 Urine Protein 2+ (NEGATIVE) H 07/29/18 12:10 Urine Ketones NEGATIVE (NEGATIVE) 07/29/18 12:10 Urine Blood NEGATIVE (NEGATIVE) 07/29/18 12:10 Urine Nitrate NEGATIVE (NEGATIVE) 07/29/18 12:10 Urine Bilirubin NEGATIVE (NEGATIVE) 07/29/18 12:10 Urine Urobilinogen NEGATIVE EU (0.2-1.0) 07/29/18 12:10 Ur Leukocyte Esterase NEGATIVE (NEGATIVE) 07/29/18 12:10 Urine RBC NONE SEEN /hpf (0-3) 07/29/18 12:10 Urine WBC 1-3 /hpf (0-3) 07/29/18 12:10 Ur Epithelial Cells TRACE /lpf (NONE-1+) 07/29/18 12:10 Urine Bacteria TRACE /hpf (NONE SEEN) H 07/29/18 12:10 Urine Mucus TRACE /lpf (NONE-1+) 07/29/18 12:10 Urine Glucose NEGATIVE (NEGATIVE) 07/29/18 12:10 Nasal Influenza A PCR FLU A DETECTED (NEGATIVE) H 07/29/18 09:12 Nasal Influenza B PCR NEGATIVE FOR FLU B (NEGATIVE) 07/29/18 09:12 Visualized and Interpreted Chest x-ray results: Yes Chest X-Ray results: other (cardiomegaly, infiltrate) Assessment & Plan Assessment: Acute congestive heart failure- BNP of 94,000 with cardiomegaly and 2+ pitting edema in a 23 year old female now with creatinine of 4. ECG with LVH. no hx of known CHF by chart review but does have resistant hypertension. Concern for hypertensive cardiomyopathy and now decompensation -TTE now -cardiology consultation -telemetry -I/O, daily weights, cardiac diet Acute on chronic renal failure (Acute)- baseline creatinine appears to be around 2. now up to 4. recently on abx so could be AIN, or cardiorenal, or worsening renal function from poorly controlled HTN. -checking urine protein/creatinine -renal consult -renal ultrasound Pneumonia- flu swab positive for influenz A. I reviewed her chest x ray and she has cardiomegaly, and a L lung infiltrate. Most likely due to flu. normal white count and normal procal in setting of positive flu swab likely represents viral pna. hold further abx and monitor. given CAP coverage in er -monitor sats -no white count flu positive -tamiflu HTN- takes coreg 25 qday, hydralazine 25 tid, and verapamil 180 Qd. says she is compliant and is still hypertensive in the ER. -continue home medications -PRN hydralazine -telemetry add hydralazine and norvasc per renal Influenza- positive flu swab Hypokalemia (Acute)- potassium ordered. monitor on telemetry, repeat K in 6 hours. Hyponatremia (Acute)- patient appears fluid overloaded, likely hypervolemic hyponatremia from fluid overload. Should correct with diuresis. Urine studies pending. -lasix 20iv -urine studies pending -monitor sodium closely Normocytic anemia, not due to blood loss (Acute)- no evidence of bleed. H/H down to 02/09. May be due to renal disease along with dilutional. -check fecal occult --repeat h/h -give 1 unit -lasix with blood Hypothyroid- cont home synthroid PPX- SCDs, Heparin Fluids- None Lytes-replete K, monitor Na, check ca nutrition- renal cardiac Cor- Full Dispo- inpatient PCU for CHF, CEDRIC, anemia, flu
--- NOTE | 2018-07-29 13:50 | PDMN ---
Medical Necessity Medical necessity: MCG 190 Heart Failure: 23 yo w/ c/o SOB, cough, LE and abd swelling. Dx testing reveals new acute CHF w/ BNP 94K and acute on chronic renal fx w/ creat 4 up from baseline of 2 and CAP w/ +influenza A. Pt noted to also be hyponatremic 128 and hypokalemic 2.9. Admit to IP status on tele for new CHF w/ severe electrolyte abnormalities, acute renal fx and pneumonia. Hx HTN, CKD, hypothyroid
--- NOTE | 2018-07-29 14:54 | PDCONSULT ---
Airplane Captain Note: RENAL CONSULT NOTE - Chief Complaint Shortness of breath, LE edema - History of Present Illness The patient is a 23 y/o F with a known h/o hypothyroidism and HTN who presented to the ED c/o increased LE edema, cough, trouble breathing. She is in town from [place] and states that she just visited [place] and developed a URI and took keflex about 2 weeks ago. She is also now diagnosed with influenza A. She states that her swelling has worsened over the past 2 weeks. She has been treated for HTN and CKD for about 1 year and saw a tobacco flavorer 2x and then forgot to follow-up. She has changed anti-hypertensives several times at [facility], however reports that she "tries" to take her meds. She has no h/o DM, however her father is diabetic and also has a tobacco flavorer. She denies other family h/o renal disease, SLE, etc. She denies any use of NSAIDs or other drugs. She was moved to PCU for prolonged QT this am. History Information - Allergies/Home Medication List No Known Allergies Allergy Home Medications: Levothyroxine [Synthroid 150 mcg (*)] 150 mcg PO DAILY06 08/23/17 [Last Taken ] hydrALAZINE [Apresoline 50 mg (*)] 50 mg PO TID 08/23/17 [Last Taken 07/28/18] Carvedilol [Coreg (*)] 25 mg PO DAILY 07/29/18 [Last Taken 07/28/18] Verapamil ER [Calan SR/ER 180MG (*)] 180 mg PO DAILY 07/29/18 [Last Taken ] - Past Medical History hypothyroid, HTN, CKD - Surgical History Reports: no pertinent surgical hx - Family History Positive for: - Social History Smoking Status: Never smoked Alcohol Use: None Drug Use: None Review of Systems Review of Systems: ROS: 10pt was reviewed & negative except for what was stated in HPI & below Objective: Temp Pulse Resp BP Pulse Ox 36.7 C 76 16 168/124 H 98 07/29/18 11:44 07/29/18 11:44 07/29/18 11:44 07/29/18 11:44 07/29/18 11:44 Physical Exam: Gen: A+Ox3, NAD HEENT: EOMI, MMM NECK: Supple RESP: CTA b/l, no wheezing, upper airway cough CV: RRR, no murmurs ABDOMEN: Soft, NT EXT: 2+ edema bl SKIN: No rashes or lesions NEURO: Non-focal WBC 9.45 10^3/uL (3.80-9.50) 07/29/18 08:50 RBC 2.63 10^6/uL (4.18-5.33) L 07/29/18 08:50 Hgb 7.4 g/dL (12.6-16.3) L 07/29/18 08:50 Hct 21.7 % (38.0-47.0) L 07/29/18 08:50 MCV 82.5 fL (81.5-99.8) 07/29/18 08:50 MCH 28.1 pg (27.9-34.1) 07/29/18 08:50 MCHC 34.1 g/dL (32.4-36.7) 07/29/18 08:50 RDW 15.1 % (11.5-15.2) 07/29/18 08:50 Plt Count 257 10^3/uL (150-400) 07/29/18 08:50 MPV 10.3 fL (8.7-11.7) 07/29/18 08:50 Neut % (Auto) 85.8 % (39.3-74.2) H 07/29/18 08:50 Lymph % (Auto) 8.3 % (15.0-45.0) L 07/29/18 08:50 [place] % (Auto) 4.7 % (4.5-13.0) 07/29/18 08:50 Eos % (Auto) 0.0 % (0.6-7.6) L 07/29/18 08:50 Baso % (Auto) 0.2 % (0.3-1.7) L 07/29/18 08:50 Nucleat RBC Rel Count 0.0 % (0.0-0.2) 07/29/18 08:50 Absolute Neuts (auto) 8.12 10^3/uL (1.70-6.50) H 07/29/18 08:50 Absolute Lymphs (auto) 0.78 10^3/uL (1.00-3.00) L 07/29/18 08:50 Absolute Monos (auto) 0.44 10^3/uL (0.30-0.80) 07/29/18 08:50 Absolute Eos (auto) 0.00 10^3/uL (0.03-0.40) L 07/29/18 08:50 Absolute Basos (auto) 0.02 10^3/uL (0.02-0.10) 07/29/18 08:50 Absolute Nucleated RBC 0.00 10^3/uL (0-0.01) 07/29/18 08:50 Immature Gran % 1.0 % (0.0-1.1) 07/29/18 08:50 Immature Gran # 0.09 10^3/uL (0.00-0.10) 07/29/18 08:50 VBG Lactic Acid 0.8 mmol/L (0.7-2.1) 07/29/18 10:05 Sodium 128 mEq/L (135-145) L 07/29/18 10:05 Potassium 2.9 mEq/L (3.5-5.2) L 07/29/18 10:05 Chloride 100 mEq/L (97-110) 07/29/18 10:05 Carbon Dioxide 20 mEq/l (22-31) L 07/29/18 10:05 Anion Gap 8 mEq/L (6-14) 07/29/18 10:05 BUN 66 mg/dL (7-23) H 07/29/18 10:05 Creatinine 4.0 mg/dL (0.6-1.0) H 07/29/18 10:05 Estimated GFR 14 07/29/18 10:05 Glucose 90 mg/dL (70-100) 07/29/18 10:05 Calcium 7.6 mg/dL (8.5-10.4) L 07/29/18 10:05 Magnesium 1.9 mg/dL (1.6-2.3) 07/29/18 12:25 Total Bilirubin 0.7 mg/dL (0.1-1.4) 07/29/18 10:05 Conjugated Bilirubin 0.4 mg/dL (0.0-0.5) 07/29/18 10:05 Unconjugated Bilirubin 0.3 mg/dL (0.0-1.1) 07/29/18 10:05 AST 44 IU/L (14-46) 07/29/18 10:05 ALT 35 IU/L (9-52) 07/29/18 10:05 Alkaline Phosphatase 137 IU/L (38-126) H 07/29/18 10:05 NT-Pro-B Natriuret Pep 58036 pg/mL (0-125) H 07/29/18 10:05 Total Protein 5.4 g/dL (6.3-8.2) L 07/29/18 10:05 Albumin 2.6 g/dL (3.5-5.0) L 07/29/18 10:05 Lipase 51 IU/L (23-300) 07/29/18 10:05 Procalcitonin 1.64 ng/mL (0.02-0.10) H 07/29/18 12:25 Beta HCG, Qual NEGATIVE 07/29/18 10:05 Urine Color PALE YELLOW 07/29/18 12:10 Urine Appearance CLEAR 07/29/18 12:10 Urine pH 6.0 (5.0-7.5) 07/29/18 12:10 Ur Specific [place] 1.009 (1.002-1.030) 07/29/18 12:10 Urine Protein 2+ (NEGATIVE) H 07/29/18 12:10 Urine Ketones NEGATIVE (NEGATIVE) 07/29/18 12:10 Urine Blood NEGATIVE (NEGATIVE) 07/29/18 12:10 Urine Nitrate NEGATIVE (NEGATIVE) 07/29/18 12:10 Urine Bilirubin NEGATIVE (NEGATIVE) 07/29/18 12:10 Urine Urobilinogen NEGATIVE EU (0.2-1.0) 07/29/18 12:10 Ur Leukocyte Esterase NEGATIVE (NEGATIVE) 07/29/18 12:10 Urine RBC NONE SEEN /hpf (0-3) 07/29/18 12:10 Urine WBC 1-3 /hpf (0-3) 07/29/18 12:10 Ur Epithelial Cells TRACE /lpf (NONE-1+) 07/29/18 12:10 Urine Bacteria TRACE /hpf (NONE SEEN) H 07/29/18 12:10 Urine Mucus TRACE /lpf (NONE-1+) 07/29/18 12:10 Ur Random Creatinine 47.7 mg/dL 07/29/18 12:10 U Random Total Protein 265 mg/dL (0-11) H 07/29/18 12:10 Ur Random Sodium 34 mEq/L (30-90) 07/29/18 12:10 Ur Random Potassium 28.9 mEq/L (0.5-35.0) 07/29/18 12:10 Urine Glucose NEGATIVE (NEGATIVE) 07/29/18 12:10 Nasal Influenza A PCR FLU A DETECTED (NEGATIVE) H 07/29/18 09:12 Nasal Influenza B PCR NEGATIVE FOR FLU B (NEGATIVE) 07/29/18 09:12 Imaging: Renal US pending. Assessment/Plan: The patient is a 23 y/o F with a known h/o CKD who presents with volume overload and CEDRIC and nephrotic syndrome. CEDRIC with CKD III -baseline Cr reportedly 2.0, now up to 4.0 -ordered renal US -will order serologies for nephrotic syndrome (alb <3, UPC >5g, edema) -check lipid panel -consider renal biopsy pending US tomorrow pending BP's -no indication for HD, continue to monitor HTN/vol -BP's still 160's systolic -start amlodipine 5mg -added hydralazine 25mg po prn Acidosis -start oral bicarb 1300mg po BID -monitor Anemia -Hb 7.4 -likely needs to start EPO -check iron studies BMD -check PTH, vitamin D, phos -renal diet Prolonged QT with volume overload -holding lasix for now given CEDRIC -agree with holding fluids and dilt -potassium ok, would check Mg and ionized calcium -monitor on telemetry -avoid zofran or other QT prolonging drugs -echo pending Thank you for this consult, will continue to follow. Please contact if ?'s. #[phone] Avni Hood, DO [facility]
[2018-07-29] MEDS: amLODIPine BESYLATE 5 MG TAB PO SCH (16:02)
[2018-07-29] MEDS: HEPARIN 5,000 UNIT/0.5 ML INJ SC SCH ×2 (16:03→20:05)
--- NOTE | 2018-07-29 16:52 | ECHO ---
[email or web address] [address] [address] Main: [phone] Fax: Transthoracic Echocardiogram Name: AIXA GRIFFITH MR#: [id number] Study Date: 07/29/2018 Study Time: 02:24 PM Date of : 1995 Age: 23 year(s) Height: 175.3 cm (69 in.) Weight: 90.72 kg (200 lb.) BSA: 2.07 m2 Gender: Female Examination: Echo Indication: Fluid overload/BNP of 94, 000 Image Quality: Adequate Contrast: Requested by: Montrell Garcia BP: 157 mmHg/108 mmHg Heart Rate: Rhythm: Indication: Fluid overload/BNP of 94, 000 Procedure Staff Chefs: Veronica Wood [facility] [place] Reading Physician: Carli Parish MD Requesting Provider: Conclusions: Normal size left ventricle. Severe concentric LV hypertrophy. Mildly reduced systolic LV function. The ejection fraction is estimated to be 40-45 %. Grade 1 diastolic dysfunction (abnormal relaxation). Normal size right ventricle. Normal RV function. The left atrium is severely dilated. The right atrium is mildly dilated. Mild mitral valve regurgitation is present. Mild tricuspid regurgitation is present. The pulmonary artery pressure is mildly increased. RVSP is 46mmHG.. Trivial anterior pericardial effusion. No echocardiographic evidence of hemodynamic compromise. There is no previous echocardiogram for comparison. Measurements: Chambers Valvular Assessment AV/MV Valvular Assessment TV/PV Normal Normal Normal Name Value Range Name Value Range Name Value Range Ao Gosia (MM): 3.0 cm (2.2 cm-3.7 AV meanP mmHg ( - ) TR Vmax: 3.04 mm/s ( - ) cm) MV E Vmax: 0.94 m/s ( - ) TR PGmax: 37 mmHg ( - ) IVSd (2D): 1.9 cm (0.6 cm-1.1 MV A Vmax: 0.32 m/s ( - ) syst. PAP: 42 mmHg ( - ) cm) MV E/A: 2.94 ( - ) LVDd (2D): 5.2 cm (3.9 cm-5.3 cm) LVDs (2D): 4.2 cm (2.1 cm-4 cm) LVPWd (2D): 1.4 cm ( - ) Patient: AIXA GRIFFITH Study Date: 07/29/2018 Page 1 of 2 02:24 PM LVOTd 1.9 cm 1.9 cm mm LVEF (BP): 53 % (>=55 %) EF Range: 40-45 % Continued Measurements: Chambers Valvular Assessment AV/MV Valvular Assessment TV/PV Name Value Name Value Name Value LADs: 6.0 cm MV E' Septal: 0.07 m/s CVP (est.): 5 mmHg LADs Lon.3 cm MV E/E' Septal: 13.20 LA Area: 37.3 cm2 MV E/E' Lateral: 12.70 LA Volume: 150 ml LA Volume Index: 72.5 ml/m2 Additional Vessels Name Value Ao Ascendin.3 cm Findings: Left Ventricle: Normal size left ventricle. Severe concentric LV hypertrophy. Mildly reduced systolic LV function. The ejection fraction is estimated to be 40-45 %. Grade 1 diastolic dysfunction (abnormal relaxation). Right Ventricle: Normal size right ventricle. Normal RV function. Left Atrium: The left atrium is severely dilated. Right Atrium: The right atrium is mildly dilated. Mitral Valve: The mitral valve is normal in appearance. Mild mitral valve regurgitation is present. Aortic Valve: The aortic valve is normal in appearance and function. The aortic valve is tri-leaflet. Trivial aortic valve regurgitation. Tricuspid Valve: The tricuspid valve is normal in appearance and function. Mild tricuspid regurgitation is present. The pulmonary artery pressure is mildly increased. RVSP is 46mmHG.. Pulmonic Valve: The pulmonic valve is normal in appearance and function. Trivial pulmonic valve regurgitation. Aorta: The aorta is normal. Pericardium: Trivial anterior pericardial effusion. No echocardiographic evidence of hemodynamic compromise. (No Signature Object) Patient: AIXA GRIFFITH Study Date: 07/29/2018 Page 2 of 2 02:24 PM [id number]
[2018-07-29 17:08] LABS: HEPATITIS A ANTIBODY IGM (BCH) NEGATIVE (NEGATIVE); HEPATITIS B CORE AB IGM NEGATIVE (NEGATIVE); HEPATITIS B SURFACE ANTIGEN NEGATIVE (NEGATIVE)
[2018-07-29 17:17] LABS: HEPATITIS C ANTIBODY TOTAL NEGATIVE (NEGATIVE)
[2018-07-29] MEDS ORDERED: MAGNESIUM SULF 1 GM/DEXTROSE 100 ML IV ONE (17:19)
[2018-07-29] MEDS: CARVEDILOL 6.25 MG TAB PO SCH (18:14)
[2018-07-29] MEDS: hydrALAZINE 25 MG TAB PO PRN (20:05)
[2018-07-29] MEDS: SODIUM BICARBONATE 650 MG TAB PO SCH (20:05)
[2018-07-29] MEDS ORDERED: FUROSEMIDE 20 MG/2 ML VIAL IVP ONE (23:30)
[2018-07-29] MEDS: BENZONATATE 100 MG CAP PO PRN (23:43)
[2018-07-30 05:23] LABS: PLATELET COUNT 315 10^3/uL (150-400)
[2018-07-30] MEDS: HEPARIN 5,000 UNIT/0.5 ML INJ SC SCH (05:46)
[2018-07-30] MEDS: hydrALAZINE 25 MG TAB PO PRN (05:48)
--- NOTE | 2018-07-30 06:17 | GCON ---
CARDIOLOGY CONSULTATION DATE OF CONSULTATION: 07/29/2018 CHIEF COMPLAINT: Lower extremity edema, heart failure. HISTORY OF PRESENT ILLNESS: We were asked by Dr. Haque to visit with the patient. The patient is a 23-year-old female with a 1-year diagnosis of hypertension. As an outpatient, she has been on verapa mil, carvedilol, and hydralazine. Over the past few weeks, she has been visiting [place]. While there, she developed ear congestion, cough, fever. She was given a painkiller called Metamizole and has als o been on a version of Keflex for about 4 days. She describes a dry cough, fever, and worsening lower extremity edema as well as some abdominal distention. Over the past 24 hours, she has driven from [place] to [place]. Because of worsening cough, dyspnea, a nd edema, she presented to the ER. She was found to be significantly anemic. Creatinine up to 4. BNP markedly elevated at 94,000. She was hypertensive to 160/107. She was therefore admitted for further evaluation and management. She has been seen by the renal service. She reports that she is not having any chest pain. She is still quite dyspneic. She does state that s he has been taking her antihypertensive medications, but one of them caused lower extremity edema, pr esumably the verapamil. She has not had palpitations or syncope. REVIEW OF SYSTEMS: As noted above. She states that she is urinating a lot. She has not had any obvio us bleeding. ALLERGIES: No known drug allergies. PAST MEDICAL HISTORY: 1. Hypertension. 2. Chronic renal insufficiency. 3. Hypothyroidism. 4. Anemia. OUTPATIENT MEDICATIONS: Pain reliever and antibiotic from [place] as listed above. Coreg 25 mg p.o. d aily, hydralazine 50 mg 3 times a day, Synthroid 150 mcg daily, and verapamil 180 mg daily. FAMILY HISTORY: Negative for known heart disease or renal disease. SOCIAL HISTORY: She does not drink alcohol. She does not smoke cigarettes. PHYSICAL EXAM: VITALS: Blood pressure 157/108, heart rate 76, oxygen saturation 90% on room air. She is afebrile. GENERAL: Mildly dyspneic young female. HEENT: Sclerae Mucous membranes are moist. Normocephalic, atraumatic. CARDIOVASCULAR: JVP is approximately 12 cm of water. Regular rate a nd rhythm without murmur, rub or gallop. LUNGS: Clear to auscultation bilaterally without wheeze, rho nchi, or rales. ABDOMEN: Nontender. Minimally distended. No obvious bruits, masses, hepatosplenomegal y. EXTREMITIES: Warm and well perfused. Trace to 1+ pitting edema. NEURO: Alert and oriented x3 witho ut gross focal neurologic deficits. Appropriate mood and affect. LABORATORY DATA: White count 9.54, hematocrit 21.7, platelets 257, left shift. Elevated reticulocyte count. VBG: Lactic acid 0.8. Sodium potassium 3.2 which is up from 2.9 in the emergency department. Chloride 98, bicarb 20, BUN 64, creatinine 4.1. She had a creatinine of 2.0 in August o last year. Iron is 19, TIBC and iron saturation 7, ferritin 171. AST, ALT normal. Alkal ine phosphatase 137, BNP 94,800, albumin 2.6, lipase 51. Procalcitonin 1.64. Beta HCG negative. PTH 2 74. Urinalysis shows significant protein of 265. Flu A positive. HENRY screen and complement pending. H epatitis panel and HIV pending. Streptozyme test less than 25, which is negative. EKG reviewed by me shows sinus rhythm with prolonged QT and diffuse nonspecific ST-T wave abnormaliti es. LVH. Echocardiogram reviewed by me, severe concentric LVH. Mildly reduced ejection fraction of 40% to 45%. Mild mitral regurgitation. Trivial pericardial effusion. Chest x-ray reviewed by me: Patchy alveolar consolidation left lower lobe. Mild pulmonary venous hype rtension. ASSESSMENT AND PLAN: A 23-year-old female with known history of chronic renal insufficiency and hype rtension, now presents with influenza, worsening renal function, significant volume overload, and new diagnosis of cardiomyopathy as well as poorly controlled hypertension. 1. Cardiomyopathy and acute systolic heart failure: Etiology is likely hypertension. Agree with amlo dipine and p.r.n. hydralazine. Will add back moderate dose carvedilol with intent to up titrate. Diur etics on hold given acute renal failure, but she is not getting intravenous fluids. Will probably req uire some diuretics. Angiotensin-converting enzyme inhibitor, angiotensin receptor katie, spironola ctone are currently contraindicated. Even though the etiology of her cardiomyopathy is likely related to systemic hypertension, she does have significant LV hypertrophy, and would consider further evalu ation for infiltrative cardiomyopathy. 2. Acute on chronic renal failure with nephrotic range proteinuria: Renal ultrasound pending. Serolo dustyes including HENRY, hepatitis, HIV pending. Appreciate renal assistance. It seems likely, given her y oung age, that she had underlying renal disease that then caused hypertension versus essential hypert ension causing her renal dysfunction. May need renal biopsy. 3. Hypertension: Currently on amlodipine and p.r.n. hydralazine. Add Coreg. Renal ultrasound, also c diana for renal artery stenosis. 4. Prolonged QT interval: Likely related to hypokalemia. Will replete potassium carefully. Also have given empiric magnesium. Continue telemetry. Repeat EKG. Avoid Zofran, azithromycin, and any other Q T prolonging drugs. Of note, she did receive an empiric dose of azithromycin in the emergency departm ent. 5. Influenza: Droplet precautions. 6. Anemia: Likely chronic related to her renal disease. Iron studies also suggest some component of iron deficiency. Thank you for allowing us to participate in this patient's care. Will follow with you. /[id number]/MODL
[2018-07-30] MEDS: SODIUM BICARBONATE 650 MG TAB PO SCH ×2 (08:27→20:07)
[2018-07-30] MEDS: amLODIPine BESYLATE 5 MG TAB PO SCH ×2 (08:27→20:06)
[2018-07-30] MEDS: CARVEDILOL 6.25 MG TAB PO SCH (08:27)
[2018-07-30] MEDS ORDERED: CARVEDILOL 6.25 MG TAB PO ONE (09:30)
--- NOTE | 2018-07-30 10:00 | HOSPPROG ---
Hospitalist Progress Note Assessment/Plan: 35 yo F w htn a/w influenza A and acute on chronic renal failure, htn influenza: start tamiflu 30 daily htn: acute on chronic restart home hydral carvedilol started increase norvasc to 5 bid hold dilt she is quite young for htn to be the source of her renal failure concentric LVH s/o longstanding htn needs eval for JULIO CESAR goal sbp 160-180 renal: ultrasound s/o medical renal disease no personal or FH of lupus, no rash or arthritis needs biopsy no active sediment not diabetic ?LLL infiltrate: agree w observation off abx proph: add sc heparin dispo: inpt Subjective: case d/w dr sargent. feels unwel. hypertensive Objective: Vital Signs Temp Pulse Resp BP Pulse Ox 37.2 C 104 H 28 H 202/151 H 95 07/30/18 07:55 07/30/18 07:55 07/30/18 07:55 07/30/18 07:55 07/30/18 07:55 Laboratory Results 07/30/18 04:15 07/30/18 04:15 07/29/18 07/30/18 07/31/18 05:59 05:59 05:59 Intake Total 3150 Output Total 1100 Balance 2049 - Physical Exam Constitutional: no apparent distress, appears nourished Eyes: PERRL, anicteric sclera Ears, Nose, Mouth, Throat: moist mucous membranes, hearing normal Cardiovascular: regular rate and rhythym, no murmur, rub, or gallop, edema, No systolic murmur Respiratory: no respiratory distress, no rales or rhonchi Gastrointestinal: normoactive bowel sounds, soft, non-tender abdomen Genitourinary: No oliveira in urethra Skin: warm, normal color Musculoskeletal: full muscle strength Neurologic: AAOx3, sensation intact bilaterally Psychiatric: interacting appropriately ICD10 Worksheet Patient Problems: Problems Problem Status Onset Acute on chronic renal failure Acute Community acquired pneumonia Acute Hypertensive cardiomegaly Acute Hypokalemia Acute Hyponatremia Acute Influenza A Acute Normocytic anemia, not due to blood loss Acute Dehydration Acute Renal insufficiency Acute
[2018-07-30] MEDS: OSELTAMIVIR 6 MG/ML UDSYR PO SCH (10:27)
[2018-07-30] MEDS: LEVOTHYROXINE 150 MCG TAB PO SCH (10:27)
--- NOTE | 2018-07-30 11:58 | PDCARPN ---
Cardiology Progress Note Assessment/Plan: Assessment/plan: 23-year-old female with a 1 year history of diagnosed hypertension and chronic renal insufficiency. She was admitted on July 29 with dyspnea, lower extremity edema, hypertension, volume overload, and significantly worsening renal function. She was also found to have influenza A. Ejection fraction 40%. BNP 95129. 1. Acute systolic heart failure: This is likely hypertensive heart disease given significant LVH on echo. Could also be some contribution from her viral illness. Will check troponin to ensure that she does not have a myocardial process. Highly doubt coronary disease. Did respond to a single dose of IV Lasix. Will discuss with Nephrology further diuresis which, in my opinion, would be helpful. Could also consider right heart catheterization. Continue Coreg and up titrate as needed. Serjio inhibitor, angiotensin receptor katie, and spironolactone are contraindicated in the setting of her acute renal failure. 2. Acute on chronic renal insufficiency with nephrotic range proteinuria: Followed by Nephrology. Considering renal biopsy. Would also like to evaluate for renal artery stenosis. Creatinine slightly elevated today, potassium improved. Of note, she was taking a medication that she received in [place] that had some nonsteroidal properties. HENRY, complement pending. 3. Hypertension: Amlodipine has been up titrated. Hydralazine has been added. Coreg has been up titrated. Goal systolic 160. Unclear whether she has just had long-standing hypertension causing renal disease or primary renal disease now with secondary hypertension. Needs renal artery stenosis evaluation as above. Would also favor diuresis. 4. Prolonged QT interval: This has improved with correction of her hypokalemia , however remains prolonged. She did receive IV magnesium yesterday as well. Follow on telemetry. Avoid QT prolonging medications. She gives no history of syncope or palpitations. 5. Anemia: Labs consistent with iron deficiency. Also some contribution from her chronic renal insufficiency. No active bleeding. Will probably need Depot. 6. Hyponatremia and hypokalemia: Hyponatremia did improve a bit after some diuresis. Follow closely. 7. Influenza a: She is on Tamiflu. 8. Abnormal LFTs: This may be congestive hepatopathy. Hepatitis panel negative. 9. Abnormal chest x-ray with left lower lobe infiltrate: Cough has been dry. She is not hypoxic. Follow clinically off antibiotics. 07/30/18 12:22 Subjective: She reports improved dyspnea. She has been able to eat but did have some nausea this morning without vomiting. She has not noticed any blood in her urine or her stool. Reviewed/Discussed With: hospitalist Objective: Vital Signs (8 Hrs) Temp Pulse Resp BP Pulse Ox 07/30/18 07:55 37.2 C 104 H 28 H 202/151 H 95 07/30/18 04:00 36.8 C 100 19 175/139 H 93 Intake/Output (24 Hrs) 07/29/18 07/30/18 07/31/18 05:59 05:59 05:59 Intake Total 3150 Output Total 1100 Balance 2049 Intake: Oral (ml) 1750 IV Infused (ml) 1400 Output: Urine (ml) 1100 Toilet 1100 Other: Weight 90.718 kg 100.7 kg Number of Voids 1 Toilet 1 Number of Stools Toilet 1 Mildly dyspneic with talking. JVP 10 cm water. Regular rate and rhythm with soft early systolic murmur at the base. Lungs clear to auscultation bilaterally without wheezes rhonchi rales Trace to 1+ pitting edema of both ankles as well as trace to 1+ pedal edema bilaterally Neuro alert and oriented x3 without gross focal neurologic deficits. Appropriate mood and affect. Result Diagrams: 07/30/18 04:15 07/30/18 04:15 Telemetry: Sinus rhythm. Occasional PVCs. ICD10 Worksheet Patient Problems: Problems Problem Status Onset Acute on chronic renal failure Acute Community acquired pneumonia Acute Hypertensive cardiomegaly Acute Hypokalemia Acute Hyponatremia Acute Influenza A Acute Normocytic anemia, not due to blood loss Acute Dehydration Acute Renal insufficiency Acute
[2018-07-30] MEDS ORDERED: PROMETHAZINE HCL 25 MG/ML INJ IV PRN (13:24)
[2018-07-30] MEDS ORDERED: PROMETHAZINE HCL 25 MG TAB PO PRN (13:25)
[2018-07-30] MEDS ORDERED: FUROSEMIDE 40 MG/4 ML VIAL IVP ONE (13:35)
--- NOTE | 2018-07-30 16:15 | ASMTCMCOM ---
CM Note CM Note Notes: Kailey is a 23 year old female with Hypertension, hypothyroid, and CKD. Presents acute congestive heart failure, acute chronic renal failure, and influenza. Discharge needs are TBD at this time. CM to follow. CM contacted [facility] to see if they can provide additional supports. CM to follow Plan: TBD Date Signed: 07/30/2018 04:14 PM Electronically Signed By:VENITA Blum
--- NOTE | 2018-07-30 16:53 | SOAPPROG ---
SOAP Progress Note Assessment/Plan: Assessment: 1. arf: b/l creat reportedly 2 a year ago, now presents with creat 4 and nephrotic-range proteinuria. Kidneys quite large on u/s, suggesting infiltrative process (DM, amyloid, HIV, scleroderma, etc). Will need bx but bp needs to be improved prior; this is being addressed. No asa products. Serologies pending. Unfortunately, this likely reflects progressive ckd over past year and I am not optimistic that her renal dz will be treatable regardless of dx. Nonetheless I think bx is warranted given her age. I described the procedure in detail, along with risk of bleeding. She is agreeable. Once sbp consistantly < 160 will proceed with this. 2. htn: I suspect this is chronic and has probably accelerated progression of her renal dz. Probably large volume component, agree with diuresis. Good response to iv lasix earlier today, will start daily dose in am and consider increasing to bid. 3. Overload: cont diuresis as above. 4. anemia: follow, transfuse prn. Will add paraprotein eval despite her age, rebel in light of large kidneys. Would hold epo until bp controlled. Plan: 07/30/18 16:45 07/30/18 16:54 Subjective: Feeling better. Had to sleep sitting up in chair last night. Has made 900ml uo s /p lasix earlier today. Objective: Vital Signs Temp Pulse Resp BP Pulse Ox 36.3 C 85 19 181/132 H 92 07/30/18 16:00 07/30/18 16:00 07/30/18 16:00 07/30/18 16:00 07/30/18 16:00 Laboratory Results 07/30/18 04:15 07/30/18 04:15 07/29/18 07/30/18 07/31/18 05:59 05:59 05:59 Intake Total 3150 Output Total 1100 1150 Balance 2049 -1149 Physical Exam - Physical Exam General Appearance: no apparent distress Respiratory: decreased breath sounds Cardiac/Chest: regular rate, rhythm Abdomen: non-tender Extremities: swelling ICD10 Worksheet Patient Problems: Problems Problem Status Onset Acute on chronic renal failure Acute Community acquired pneumonia Acute Hypertensive cardiomegaly Acute Hypokalemia Acute Hyponatremia Acute Influenza A Acute Normocytic anemia, not due to blood loss Acute Dehydration Acute Renal insufficiency Acute
[2018-07-30] MEDS: CARVEDILOL 25 MG TAB PO SCH (17:50)
[2018-07-30] MEDS: BENZONATATE 100 MG CAP PO PRN (20:06)
[2018-07-31 05:04] LABS: PLATELET COUNT 327 10^3/uL (150-400)
[2018-07-31] MEDS: LEVOTHYROXINE 150 MCG TAB PO SCH (06:36)
--- NOTE | 2018-07-31 06:37 | CPEKG ---
Test Reason : OPEN Blood Pressure : / mmHG Vent. Rate : 080 BPM Atrial Rate : 080 BPM P-R Int : 166 ms QRS Dur : 101 ms QT Int : 448 ms P-R-T Axes : 046 025 092 degrees QTc Int : 517 ms Sinus rhythm biatrial enlargement Left ventricular hypertrophy Borderline T abnormalities, lateral leads Prolonged QT interval Confirmed by Guido Morris ([id number]) on 07/31/2018 6:36:30 AM Referred By: Confirmed By:Guido Morris
--- NOTE | 2018-07-31 06:45 | CPEKG ---
Test Reason : OPEN Blood Pressure : / mmHG Vent. Rate : 095 BPM Atrial Rate : 095 BPM P-R Int : 163 ms QRS Dur : 103 ms QT Int : 410 ms P-R-T Axes : 063 003 096 degrees QTc Int : 516 ms Sinus rhythm Left atrial enlargement LVH with secondary repolarization abnormality Prolonged QT interval Confirmed by Guido Morris ([id number]) on 07/31/2018 6:45:12 AM Referred By: Confirmed By:Guido Morris
[2018-07-31] MEDS: CARVEDILOL 25 MG TAB PO SCH ×2 (07:57→17:50)
[2018-07-31] MEDS: amLODIPine BESYLATE 5 MG TAB PO SCH ×2 (07:57→23:37)
[2018-07-31] MEDS: SODIUM BICARBONATE 650 MG TAB PO SCH ×2 (07:57→23:37)
[2018-07-31] MEDS: OSELTAMIVIR 6 MG/ML UDSYR PO SCH (08:05)
[2018-07-31] MEDS ORDERED: FUROSEMIDE 40 MG/4 ML VIAL IVP SCH (09:00)
--- NOTE | 2018-07-31 10:54 | HOSPPROG ---
Hospitalist Progress Note Assessment/Plan: 35 yo F w htn a/w influenza A and acute on chronic renal failure, htn influenza: start tamiflu 30 daily htn: volume overloaded increase carvedilol bid norvasc tid hydralazine needs diuresis volume overload: R heart cath and lasix drip bid chemistries d/w dr sargent renal: ultrasound s/o medical renal disease no personal or FH of lupus, no rash or arthritis needs biopsy no active sediment not diabetic ?LLL infiltrate: agree w observation off abx proph: add sc heparin dispo: inpt Subjective: case d/w dr sargent. cr increased w diuresis. no CP Objective: Vital Signs Temp Pulse Resp BP Pulse Ox 36.8 C 93 20 146/86 H 94 07/31/18 07:28 07/31/18 07:28 07/31/18 07:28 07/31/18 10:43 07/31/18 07:28 Laboratory Results 07/31/18 04:15 07/31/18 04:15 07/30/18 07/31/18 08/01/18 05:59 05:59 05:59 Intake Total 3150 1850 Output Total 1100 2800 Balance 2050 -950 - Physical Exam Constitutional: no apparent distress, appears nourished Eyes: PERRL, anicteric sclera Ears, Nose, Mouth, Throat: moist mucous membranes, hearing normal Cardiovascular: regular rate and rhythym, no murmur, rub, or gallop, edema Respiratory: no respiratory distress, no rales or rhonchi Gastrointestinal: normoactive bowel sounds, soft, non-tender abdomen Genitourinary: no bladder fullness, No oliveira in urethra Skin: warm, normal color Musculoskeletal: full muscle strength Neurologic: AAOx3 Psychiatric: interacting appropriately Lymph, Heme, Immunologic: no cervical LAD ICD10 Worksheet Patient Problems: Problems Problem Status Onset Acute on chronic renal failure Acute Community acquired pneumonia Acute Hypertensive cardiomegaly Acute Hypokalemia Acute Hyponatremia Acute Influenza A Acute Normocytic anemia, not due to blood loss Acute Dehydration Acute Renal insufficiency Acute
[2018-07-31] MEDS ORDERED: CARVEDILOL 25 MG TAB PO ONE (11:00)
--- NOTE | 2018-07-31 14:59 | SOAPPROG ---
SOAP Progress Note Assessment/Plan: Assessment: 1. arf: b/l creat 2 a year ago with dipstick proteinuria, now presents with creat 4 and nephrotic-range proteinuria. Kidneys quite large on u/s, suggesting infiltrative process (DM, amyloid, HIV, scleroderma, etc). Will need bx but bp needs to be improved prior; this is improving. No asa products. Serologies negative thus far but some still pending. Unfortunately, this likely reflects progressive ckd over past year and I am not optimistic that her renal dz will be treatable regardless of dx. Nonetheless I think bx is warranted given her age. I described the procedure in detail, along with risk of bleeding. She is agreeable. Once sbp consistantly < 160 will proceed with this, hopefully Sunday. 2. htn: I suspect this is chronic and has probably accelerated progression of her renal dz. Probably large volume component, cont diuresis. Good response to iv lasix, will increase to bid. 3. Overload: cont diuresis as above. 4. anemia: follow, transfuse prn. Will add paraprotein eval despite her age, rebel in light of large kidneys. Would hold epo until bp controlled. 5. HypoNa: improving with modest po fluid restriction + diuresis Plan: 07/30/18 16:45 07/30/18 16:54 07/31/18 14:56 Subjective: Feeling better, breathing much improved. Objective: Vital Signs Temp Pulse Resp BP Pulse Ox 36.8 C 93 20 146/86 H 94 07/31/18 07:28 07/31/18 07:28 07/31/18 07:28 07/31/18 10:43 07/31/18 07:28 Laboratory Results 07/31/18 04:15 07/31/18 04:15 07/30/18 07/31/18 08/01/18 05:59 05:59 05:59 Intake Total 3150 1850 Output Total 1100 2800 1200 Balance 2050 -950 -1200 Physical Exam - Physical Exam General Appearance: no apparent distress Respiratory: lungs clear Cardiac/Chest: regular rate, rhythm Extremities: pedal edema ICD10 Worksheet Patient Problems: Problems Problem Status Onset Acute on chronic renal failure Acute Community acquired pneumonia Acute Hypertensive cardiomegaly Acute Hypokalemia Acute Hyponatremia Acute Influenza A Acute Normocytic anemia, not due to blood loss Acute Dehydration Acute Renal insufficiency Acute
[2018-07-31] MEDS ORDERED: POTASSIUM CL 20 MEQ TAB PO ONE (15:00)
[2018-07-31] MEDS: FUROSEMIDE 40 MG/4 ML VIAL IVP SCH (15:23)
--- NOTE | 2018-07-31 16:12 | PDCARPN ---
Cardiology Progress Note Assessment/Plan: Assessment/plan: 23-year-old female with a 1 year history of diagnosed hypertension and chronic renal insufficiency. She was admitted on July 29 with dyspnea, lower extremity edema, hypertension, volume overload, and significantly worsening renal function. She was also found to have influenza A. Ejection fraction 40%. BNP 72185. 1. Acute systolic heart failure: This is likely hypertensive heart disease given significant LVH on echo. Could also be some contribution from her viral illness. Troponin is minimally elevated, likely related to hypertension and volume overload. Highly doubt coronary disease. Is responding well to IV Lasix. If stops responding to IV Lasix and creatinine worse, could also consider right heart catheterization. Continue Coreg. Serjio inhibitor, angiotensin receptor katie, and spironolactone are contraindicated in the setting of her acute renal failure. 2. Acute on chronic renal insufficiency with nephrotic range proteinuria: Followed by Nephrology. Kidneys large on ultrasound. Ongoing evaluation for processes such as amyloidosis. HENRY is negative. HIV negative. Renal biopsy once blood pressure is improved. Will order Doppler for renal artery stenosis. Creatinine slightly worse today. Of note, she was taking a medication that she received in [place] that had some nonsteroidal properties. HENRY pending. Complement normal. SPEP negative. UPEP pending. 3. Hypertension: Amlodipine has been up titrated. Hydralazine has been added. Coreg has been up titrated. Goal systolic 160. Unclear whether she has just had long-standing hypertension causing renal disease or primary renal disease now with secondary hypertension. Needs renal artery stenosis evaluation as above. Continue diuresis 4. Prolonged QT interval: This has improved with correction of her hypokalemia , however remains prolonged. She did receive IV magnesium date of admission as well.. Follow on telemetry. Avoid QT prolonging medications. She gives no history of syncope or palpitations. 5. Anemia: Labs consistent with iron deficiency. Also some contribution from her chronic renal insufficiency. No active bleeding. Will probably need Epogen. 6. Hyponatremia and hypokalemia: Hyponatremia did improve a bit after some diuresis. Follow closely. 7. Influenza A: She is on Tamiflu. 8. Abnormal LFTs: This may be congestive hepatopathy. Hepatitis panel negative. 9. Abnormal chest x-ray with left lower lobe infiltrate: Cough has been dry. She is not hypoxic. Follow clinically off antibiotics. 07/31/18 16:13 Subjective: She feels better today. Breathing is improved. She is urinating a lot. Reviewed/Discussed With: family, hospitalist, other (Dr. Swain) Objective: Vital Signs (8 Hrs) Temp Pulse Resp BP Pulse Ox 07/31/18 15:09 36.7 C 68 18 148/105 H 99 07/31/18 10:43 146/86 H Intake/Output (24 Hrs) 07/30/18 07/31/18 08/01/18 05:59 05:59 05:59 Intake Total 3150 1850 Output Total 1100 2800 1200 Balance 2050 -950 -1200 Intake: Oral (ml) 1750 1850 IV Infused (ml) 1400 Output: Urine (ml) 1100 2800 1200 Toilet 1100 2800 1200 Other: Weight 90.718 kg 98.8 kg Number of Voids 1 Toilet 1 Number of Stools Toilet 1 3 1 No acute distress. JVP 12. Regular rate and rhythm without murmur or gallop Lungs clear bilaterally without wheeze rhonchi rales 1+ ankle edema bilaterally Result Diagrams: 07/31/18 04:15 07/31/18 04:15 Cardiac Labs: Cardiac Lab Results (72 Hrs) 07/31/18 07/30/18 04:15 11:33 Troponin I 0.084 H 0.095 H ICD10 Worksheet Patient Problems: Problems Problem Status Onset Dehydration Acute Renal insufficiency Acute Community acquired pneumonia Acute Normocytic anemia, not due to blood loss Acute Acute on chronic renal failure Acute Hypokalemia Acute Hyponatremia Acute Hypertensive cardiomegaly Acute Influenza A Acute
[2018-08-01] MEDS: LEVOTHYROXINE 150 MCG TAB PO SCH (06:22)
[2018-08-01 07:40] LABS: 25-HYDROXY D2 <4.0 ng/mL
[2018-08-01 08:51] LABS: PLATELET COUNT 324 10^3/uL (150-400)
[2018-08-01] MEDS: FUROSEMIDE 40 MG/4 ML VIAL IVP SCH ×2 (09:00→16:03)
[2018-08-01] MEDS: SODIUM BICARBONATE 650 MG TAB PO SCH ×2 (09:01→21:16)
[2018-08-01] MEDS: amLODIPine BESYLATE 5 MG TAB PO SCH ×2 (09:01→21:16)
[2018-08-01] MEDS: CARVEDILOL 25 MG TAB PO SCH ×2 (09:01→18:03)
--- NOTE | 2018-08-01 09:52 | HOSPPROG ---
Hospitalist Progress Note Assessment/Plan: 35 yo F w htn a/w influenza A and acute on chronic renal failure, htn influenza: start tamiflu 30 daily htn: volume overloaded increase carvedilol bid norvasc tid hydralazine diuresing volume overload: bid lasix bid chemistries d/w dr sargent renal: ultrasound s/o medical renal disease no personal or FH of lupus, no rash or arthritis needs biopsy; possibly arrange for 08/02 no active sediment not diabetic ?LLL infiltrate: agree w observation off abx proph: add sc heparin dispo: inpt Subjective: case d/w dr sargent. diuresing w improvement in edema and SOB Objective: Vital Signs Temp Pulse Resp BP Pulse Ox 36.5 C 75 18 177/122 H 95 08/01/18 08:19 08/01/18 08:19 08/01/18 08:19 08/01/18 08:19 08/01/18 08:19 Laboratory Results 08/01/18 08:29 08/01/18 08:29 07/31/18 08/01/18 08/02/18 05:59 05:59 05:59 Intake Total 1850 1500 Output Total 2800 3625 400 Balance -950 -2125 -400 - Physical Exam Constitutional: no apparent distress, appears nourished Eyes: PERRL, anicteric sclera Ears, Nose, Mouth, Throat: moist mucous membranes, hearing normal Cardiovascular: regular rate and rhythym, no murmur, rub, or gallop, edema Respiratory: no respiratory distress, no rales or rhonchi Gastrointestinal: normoactive bowel sounds, soft, non-tender abdomen Genitourinary: No oliveira in urethra Skin: warm, normal color Musculoskeletal: full muscle strength Neurologic: AAOx3 ICD10 Worksheet Patient Problems: Problems Problem Status Onset Acute on chronic renal failure Acute Community acquired pneumonia Acute Hypertensive cardiomegaly Acute Hypokalemia Acute Hyponatremia Acute Influenza A Acute Normocytic anemia, not due to blood loss Acute Dehydration Acute Renal insufficiency Acute
[2018-08-01] MEDS ORDERED: POTASSIUM CL 20 MEQ/15 ML UDCUP PO ONE (10:12)
--- NOTE | 2018-08-01 10:19 | PDCARPN ---
Cardiology Progress Note Assessment/Plan: Assessment/plan: 23-year-old female with a 1 year history of diagnosed hypertension and chronic renal insufficiency. She was admitted on July 29 with dyspnea, lower extremity edema, hypertension, volume overload, and significantly worsening renal function. She was also found to have influenza A. Ejection fraction 40%. BNP 26446. 1. Acute systolic heart failure: This is likely hypertensive heart disease given significant LVH on echo. Could also be some contribution from her viral illness. Infiltrative process is also possible. Troponin is minimally elevated , likely related to hypertension and volume overload. Highly doubt coronary disease. Is responding well to IV Lasix. If stops responding to IV Lasix and creatinine worse, could also consider right heart catheterization. Continue Coreg and hydralazine. Serjio inhibitor, angiotensin receptor katie, and spironolactone are contraindicated in the setting of her acute renal failure. Renin was normal. Aldosterone pending. 2. Acute on chronic renal insufficiency with nephrotic range proteinuria: Followed by Nephrology. Kidneys echogenic on ultrasound. Ongoing evaluation for processes such as amyloidosis. (SPEP negative, UPEP ordered) HENRY is negative. HIV negative. Renal biopsy once blood pressure is improved. No definitive evidence of JULIO CESAR on u/s but FMD not ruled out; no CT now due to ARF. Creatinine slightly worse today. Complement normal. UPEP pending. 3. Hypertension: Amlodipine has been up titrated. Hydralazine has been added, will uptitrate today. Coreg has been up titrated. Could increase coreg to 50 BID. Goal systolic 160. Unclear whether she has just had long-standing hypertension causing renal disease or primary renal disease now with secondary hypertension. Continue diuresis 4. Prolonged QT interval: This has improved with correction of her hypokalemia , however remains prolonged. She did receive IV magnesium date of admission as well. Follow on telemetry. Avoid QT prolonging medications. She gives no history of syncope or palpitations. 5. Anemia: Labs consistent with iron deficiency. Also some contribution from her chronic renal insufficiency. No active bleeding. Will probably need Epogen. 6. Hyponatremia and hypokalemia: Hyponatremia did improve with diuresis. Follow closely. Replete potassium. 7. Influenza A: She is on Tamiflu. 8. Abnormal LFTs: This may be congestive hepatopathy. Hepatitis panel negative. Greater than 25 minutes spent in chart review and discussion with patient, family, and Dr. Lees. 08/01/18 10:16 Subjective: She reports feeling less dyspneic. However, she still sleeping in the chair as she endorses orthopnea. No chest pain. She feels that she is urinating a normal amount. Reviewed/Discussed With: family, hospitalist (Dr. Lees) Objective: Vital Signs (8 Hrs) Temp Pulse Resp BP Pulse Ox 08/01/18 08:19 36.5 C 75 18 177/122 H 95 08/01/18 04:00 36.3 C 73 19 160/113 H 95 Intake/Output (24 Hrs) 07/31/18 08/01/18 08/02/18 05:59 05:59 05:59 Intake Total 1850 1500 Output Total 2800 3625 400 Balance -950 -2125 -400 Intake: Oral (ml) 1850 1500 Output: Urine (ml) 2800 3625 400 Toilet 2800 3625 400 Other: Weight 98.8 kg 95.1 kg Intake Quantity Yes Sufficient Number of Voids Toilet 1 1 Number of Stools Toilet 3 1 Sleepy. JVP 12 cm of water with positive HJR. Regular rate and rhythm with early systolic murmur at the left lower sternal border. Positive S4. Lungs clear to auscultation bilaterally without wheezes rhonchi rales Extremities improving but still 1+ pitting edema of both feet to the midshin bilaterally Result Diagrams: 08/01/18 08:29 08/01/18 08:29 Cardiac Labs: Cardiac Lab Results (72 Hrs) 07/31/18 07/30/18 04:15 11:33 Troponin I 0.084 H 0.095 H ICD10 Worksheet Patient Problems: Problems Problem Status Onset Dehydration Acute Renal insufficiency Acute Community acquired pneumonia Acute Normocytic anemia, not due to blood loss Acute Acute on chronic renal failure Acute Hypokalemia Acute Hyponatremia Acute Hypertensive cardiomegaly Acute Influenza A Acute
--- NOTE | 2018-08-01 10:41 | SOAPPROG ---
SOAP Progress Note Assessment/Plan: Assessment/Plan: CEDRIC on CKD 3: baseline Cr was 2 last year, now up to 4 with nephrotic range proteinuria. Serologies negative thus far but still some pending. She may have quickly progressive renal disease that may not be treatable, but will confirm diagnosis. - No need for HD at this time. - Will order renal biopsy tomorrow as long as BP is improved. - Will continue to monitor. HTN: BP remains uncontrolled but improving, will increase hydralazine and continue to monitor. Hyponatremia: improving with diuresis. Hypervolemia:improving with diuresis. Hypokalemia: will give KCl today and continue to monitor, also cutting down bicarb tabs. Metabolic acidosis: improved with bicarb tabs, cutting down dosage. Subjective: No acute events overnight. Pt states she is urinating well with diuretics. She has no N/V, has no other complaints today. Objective: Vital Signs Temp Pulse Resp BP Pulse Ox 36.5 C 75 18 177/122 H 95 08/01/18 08:19 08/01/18 08:19 08/01/18 08:19 08/01/18 08:19 08/01/18 08:19 Laboratory Results 08/01/18 08:29 08/01/18 08:29 07/31/18 08/01/18 08/02/18 05:59 05:59 05:59 Intake Total 1850 1500 Output Total 2800 3625 400 Balance -950 -2125 -400 General: alert and oriented, no acute distress Eyes: EOMI, PERRL OP: Clear CV: RRR Resp: nonlabored respirations on RA Abd: Soft, NT/ND Ext: +1 edema BLE Neuro: CN II-XII Grossly intact, no asterixis Psych: cooperative ICD10 Worksheet Patient Problems: Problems Problem Status Onset Acute on chronic renal failure Acute Community acquired pneumonia Acute Hypertensive cardiomegaly Acute Hypokalemia Acute Hyponatremia Acute Influenza A Acute Normocytic anemia, not due to blood loss Acute Dehydration Acute Renal insufficiency Acute
[2018-08-01] MEDS: OSELTAMIVIR 6 MG/ML UDSYR PO SCH (10:50)
[2018-08-02 04:55] LABS: INR 1.09 (0.83-1.16); PROTIME(PATIENT) 14.3 SEC (12.0-15.0)
[2018-08-02] MEDS: LEVOTHYROXINE 150 MCG TAB PO SCH (06:37)
[2018-08-02] MEDS: SODIUM BICARBONATE 650 MG TAB PO SCH (08:05)
[2018-08-02] MEDS: FUROSEMIDE 40 MG/4 ML VIAL IVP SCH (08:05)
[2018-08-02] MEDS: CARVEDILOL 25 MG TAB PO SCH ×2 (08:06→22:54)
[2018-08-02] MEDS: OSELTAMIVIR 6 MG/ML UDSYR PO SCH (08:06)
[2018-08-02] MEDS: amLODIPine BESYLATE 5 MG TAB PO SCH (08:06)
[2018-08-02] MEDS ORDERED: HEPARIN 10,000 UNIT/10 ML MDV (1,000 UNIT/ML) IVP PRN (08:09)
[2018-08-02] MEDS ORDERED: hydrALAZINE 20 MG/ML VIAL IVP PRN ×2 (08:09→21:54)
[2018-08-02] MEDS ORDERED: MIDAZOLAM 2 MG/2 ML VIAL IVP PRN (08:09)
[2018-08-02] MEDS ORDERED: GLUCAGON HCL 1 MG VIAL IVP PRN (08:09)
[2018-08-02] MEDS ORDERED: ALTEPLASE 2 MG VIAL IVP PRN (08:09)
[2018-08-02] MEDS ORDERED: PROTAMINE SULFATE 50 MG/5 ML VIAL IVP PRN (08:09)
[2018-08-02] MEDS ORDERED: MEPERIDINE 25 MG/ML SYR IVP PRN (08:09)
[2018-08-02] MEDS ORDERED: NALOXONE HCL 0.4 MG/ML INJ IVP PRN (08:09)
[2018-08-02] MEDS ORDERED: FLUMAZENIL 0.5 MG/5 ML MDV IVP PRN (08:09)
[2018-08-02] MEDS: BENZONATATE 100 MG CAP PO PRN (08:17)
[2018-08-02] MEDS ORDERED: POTASSIUM CL 20 MEQ TAB PO ONE (09:11)
--- NOTE | 2018-08-02 09:15 | SOAPPROG ---
SOAP Progress Note Assessment/Plan: Assessment/Plan: CEDRIC on CKD 3: baseline Cr was 2 last year, now up to 4 with nephrotic range proteinuria. Serologies negative thus far but still some pending. She may have quickly progressive renal disease that may not be treatable, but will confirm diagnosis. - No need for HD at this time. - Will go forward with renal biopsy today, results may come back tomorrow but more likely Sunday. - Will continue to monitor. HTN: BP remains uncontrolled but improving, will continue to monitor on current meds. Hyponatremia: improving with diuresis. Hypervolemia: improving with diuresis. Will change Lasix to po dosing. Hypokalemia: will give KCl today and continue to monitor, also stopping bicarb tabs. Metabolic acidosis: improved, will d/c bicarb tabs and monitor. Subjective: No acute events overnight. Pt states she is feeling fine, has no complaints, breathing comfortably. Her BP is doing better in the past 24hrs. Objective: Vital Signs Temp Pulse Resp BP Pulse Ox 36.2 C 70 16 137/105 H 94 08/02/18 04:00 08/02/18 08:00 08/02/18 08:00 08/02/18 09:05 08/02/18 08:00 Laboratory Results 08/02/18 04:05 08/02/18 04:05 08/01/18 08/02/18 08/03/18 05:59 05:59 05:59 Intake Total 1500 500 Output Total 3625 4000 Balance -2125 -3500 PT 14.3 SEC (12.0-15.0) 08/02/18 04:05 INR 1.09 (0.83-1.16) 08/02/18 04:05 General: alert and oriented, no acute distress Eyes: EOMI, PERRL OP: Clear CV: RRR Resp: nonlabored respirations on RA, CTAB Abd: Soft, NT/ND Ext: +1 edema BLE Neuro: CN II-XII Grossly intact, no asterixis Psych: cooperative ICD10 Worksheet Patient Problems: Problems Problem Status Onset Acute on chronic renal failure Acute Community acquired pneumonia Acute Hypertensive cardiomegaly Acute Hypokalemia Acute Hyponatremia Acute Influenza A Acute Normocytic anemia, not due to blood loss Acute Dehydration Acute Renal insufficiency Acute
[2018-08-02] MEDS: NS 1,000 ML IV SCH ×2 (10:51→22:53)
[2018-08-02] MEDS ORDERED: LIDOCAINE 1% 300 MG/30 ML SDV ONE ×2 (12:19→19:24)
[2018-08-02] MEDS ORDERED: NALOXONE HCL 0.4 MG/ML INJ ONE ×3 (12:30→19:38)
[2018-08-02] MEDS ORDERED: FLUMAZENIL 0.5 MG/5 ML MDV IVP ONE (12:30)
[2018-08-02] MEDS ORDERED: MIDAZOLAM 2 MG/2 ML VIAL ONE ×2 (12:30→12:55)
[2018-08-02] MEDS ORDERED: fentaNYL 100 MCG/2 ML INJ ONE ×3 (12:30→19:31)
[2018-08-02] MEDS ORDERED: ONDANSETRON 4 MG/2 ML VIAL IVP PRN (13:14)
--- NOTE | 2018-08-02 13:15 | PDPROPOC ---
Sedation Plan of Care Sedation Plan of Care: vital signs stable, mental status noted, patient educated of risks, benefits, alternatives, patient can tolerate sedation ASA Classification: ASA 3 Planned drugs: fentanyl, midazolam Mallampati Score: Class 2 Mallampati Reference Image: Patient passed 3-3-2 rule?: Yes
--- NOTE | 2018-08-02 13:16 | PDHPUP ---
History & Physical Update H&P update statement: This history and physical update is based on an assessment of the patient which was completed after admission or registration (within 24 hours), but prior to the surgery/procedure. Renal failure, plan for US guided renal biopsy H&P update: H&P reviewed & patient examined, no change in patient's condition since H&P completed
--- NOTE | 2018-08-02 13:17 | PDRADPN ---
Radiology Procedure Note Date of Procedure: 08/02/18 Radiologist: Shekhar Nam Anesthesia: IV Sedation Pre-op Diagnosis: Renal failure Post-op Diagnosis: Renal failure Indication: Renal failure Procedure: US guided renal biopsy Finding(s): BP below 150/90 prior to start of biopsy. Three 18 ga cores. Please see separately dictated radiology report for full details. Inf/Abcess present in the surg proc area at time of surgery?: No EBL: Minimal
[2018-08-02] MEDS: fentaNYL 100 MCG/2 ML INJ IVP PRN ×2 (13:44→22:04)
--- NOTE | 2018-08-02 14:36 | ASMTCMCOM ---
CM Note CM Note Notes: 08/02/2018 Case Management Note Discussed pt during rounds this morning. Renal biopsy scheduled for today. Discharge needs are unclear at this time. Pt has strong family support with parents at bedside. Pt is independent with ADL's. There are no therapy evals ordered at this time[facility] Case Management d/c poc: to be determined. Case Management to follow. Date Signed: 08/02/2018 02:36 PM Electronically Signed By:Tangela Castro RN
--- NOTE | 2018-08-02 14:39 | PDCARPN ---
Cardiology Progress Note Assessment/Plan: Assessment/plan: 23-year-old female with a 1 year history of diagnosed hypertension and chronic renal insufficiency. She was admitted on July 29 with dyspnea, lower extremity edema, hypertension, volume overload, and significantly worsening renal function. She was also found to have influenza A. Ejection fraction 40%. BNP [id number]. 1. Acute systolic heart failure: This is likely hypertensive heart disease given significant LVH on echo. Could also be some contribution from her viral illness. Infiltrative process is also possible. Troponin is minimally elevated , likely related to hypertension and volume overload. Highly doubt coronary disease. Is responding well to IV Lasix. Transition to oral Lasix now. Continue Coreg and hydralazine. Serjio inhibitor, angiotensin receptor katie, and spironolactone are contraindicated in the setting of her acute renal failure. Renin and aldosterone are pending. 2. Acute on chronic renal insufficiency with nephrotic range proteinuria: Followed by Nephrology. Kidneys echogenic on ultrasound. Ongoing evaluation for processes such as amyloidosis. (SPEP negative, UPEP pending) HENRY is negative. HIV negative. Renal biopsy performed today. No definitive evidence of JULIO CESAR on u/s but FMD not ruled out; no CT now due to ARF. 3. Hypertension: Overall improved on amlodipine, hydralazine, and Coreg. Could up titrate Coreg as needed. Unclear whether she has just had long- standing hypertension causing renal disease or primary renal disease now with secondary hypertension. Continue diuresis 4. Prolonged QT interval: This has improved with correction of her hypokalemia , however remains prolonged. She did receive IV magnesium date of admission as well. Follow on telemetry. Avoid QT prolonging medications. She gives no history of syncope or palpitations. Repeat EKG now. 5. Anemia: Labs consistent with iron deficiency. Also some contribution from her chronic renal insufficiency. No active bleeding. Will probably need Epogen. 6. Hyponatremia and hypokalemia: Hyponatremia did improve with diuresis. Follow closely. Replete potassium. 7. Influenza A: She is on Tamiflu. 8. Abnormal LFTs: This may be congestive hepatopathy. Hepatitis panel negative. Greater than 25 minutes spent in chart review and discussion with patient, family, Dr. Mccormick. History was via a mobile marketing manager. The importance of close clinical follow-up after discharge was emphasized with the patient and her mother. 08/02/18 14:40 Subjective: She feels better. No dyspnea or angina. She does not have a history of leg claudication. Reviewed/Discussed With: family, other (Dr. Mccormick) Objective: Vital Signs (8 Hrs) Temp Pulse Pulse Pulse Pulse Resp BP 08/02/18 14:17 152/109 H 08/02/18 14:02 154/117 H 08/02/18 13:47 155/115 H 08/02/18 13:32 161/115 H 08/02/18 13:26 150/106 H 08/02/18 13:10 148/105 H 08/02/18 13:06 08/02/18 13:05 148/98 H 08/02/18 13:01 08/02/18 13:00 148/104 H 08/02/18 12:56 08/02/18 12:55 146/104 H 08/02/18 12:50 08/02/18 12:49 147/115 H 08/02/18 12:45 171/85 H 08/02/18 12:42 156/111 H 08/02/18 12:40 08/02/18 12:05 67 16 157/107 H 08/02/18 10:57 36.5 C 72 73 68 96 H 08/02/18 09:05 137/105 H 08/02/18 08:00 70 16 150/101 H BP BP BP Pulse Ox 08/02/18 14:17 99 08/02/18 14:02 99 08/02/18 13:47 100 08/02/18 13:32 100 08/02/18 13:26 100 08/02/18 13:10 100 08/02/18 13:06 100 08/02/18 13:05 100 08/02/18 13:01 100 08/02/18 13:00 100 08/02/18 12:56 100 08/02/18 12:55 100 08/02/18 12:50 100 08/02/18 12:49 08/02/18 12:45 08/02/18 12:42 100 08/02/18 12:40 97 08/02/18 12:05 97 08/02/18 10:57 171/130 H 170/111 H 145/103 H 08/02/18 09:05 08/02/18 08:00 94 Intake/Output (24 Hrs) 08/01/18 08/02/18 08/03/18 05:59 05:59 05:59 Intake Total 1500 500 50 Output Total 3625 4000 Balance -2125 -3500 50 Intake: Oral (ml) 1500 500 0 IV Intake (ml) 50 Output: Urine (ml) 3625 4000 Toilet 3625 4000 Other: Weight 95.1 kg 92.2 kg Intake Quantity Yes Sufficient Number of Voids Toilet 1 3 Number of Stools Toilet 1 No acute distress. JVP 10 cm water. Regular rate and rhythm no murmur or gallop Lungs clear bilateral without wheeze rhonchi rales Improving 1+ pitting edema to lower cazares bilaterally 2+ radial pulses bilaterally. No radial femoral delay on the right. 2+ dorsalis pedis pulses bilaterally. Result Diagrams: 08/02/18 04:05 08/02/18 04:05 Cardiac Labs: Cardiac Lab Results (72 Hrs) 07/31/18 04:15 Troponin I 0.084 H ICD10 Worksheet Patient Problems: Problems Problem Status Onset Dehydration Acute Renal insufficiency Acute Community acquired pneumonia Acute Normocytic anemia, not due to blood loss Acute Acute on chronic renal failure Acute Hypokalemia Acute Hyponatremia Acute Hypertensive cardiomegaly Acute Influenza A Acute
[2018-08-02] MEDS: FUROSEMIDE 80 MG TAB PO SCH (15:02)
[2018-08-02] MEDS: ACETAMINOPHEN 325 MG TAB PO PRN (15:02)
[2018-08-02] MEDS ORDERED: oxyCODONE IR 5 MG TAB PO ONE ×2 (15:11→17:15)
[2018-08-02] MEDS: traMADol 50 MG TAB PO PRN (16:13)
[2018-08-02] MEDS ORDERED: NS 1,000 ML IV ONE (17:58)
[2018-08-02] MEDS ORDERED: IOPAMIDOL (ISOVUE 370) 100 ML BTL IV ONE (18:21)
--- NOTE | 2018-08-02 18:54 | HOSPPROG ---
Hospitalist Progress Note Assessment/Plan: CRITICAL CARE NOTE GREATER THAN 50 MIN OF CRITICAL CARE TIME TODAY Today I have reviewed the patient detail with doctors Carli Parish and also Dr. Nam of Interventional Radiology I visited the patient today on multidisciplinary rounds as well as hospitals rounds I also had an extra visit with the patient's parents at the bedside today which is detailed in another note DIAGNOSES: * acute hemorrhage following renal biopsy requiring transfusion of red blood cells * severe post hemorrhagic anemia * ongoing congestive heart failure, systolic * ongoing chronic renal failure unchanged * ongoing chronic anemia of renal failure * acute influenza infection * chronic learning disorder/developmental cognitive disability; this is a lifelong condition that will need more aggressive management in the outpatient setting but also impact how we approach the patient in our conversations regarding diagnostic information and recommended treatments or studies here. The patient was having ongoing severe hypertension throughout this morning and afternoon, continuing to have some difficulty with understanding our discussions of her medical issues as well as complying with recommended therapies and testing and nursing care. I discussed ongoing management of blood pressure and heart failure with Dr. Parish. We decided on not making any significant changes today until we had renal biopsy results back. The patient did go for her kidney biopsy today and samples were obtained in the interventional radiology suite. Coming back from that procedure the patient did have some significant flank pain that has persisted and required analgesics. Her blood pressures initially were fairly high but did come down somewhat with treatment of her pain. However the pain has persisted and on repeat blood count her hemoglobin is dropped from 7-4 after the procedure indicating acute bleed from the renal biopsy. I reviewed with Dr. Nam. We have ordered 2 units of packed red blood cells for stat transfusion, ordered normal saline bolus 1 L stat, and she is being set up to go right now to the IR suite for angiography to see if there is evidence of active bleeding which could be treated there or might need other treatments. The patient family have been informed and she has signed consent for the transfusions. I have placed orders for the angiogram. Overall she is at high risk for ongoing bleeding with life-threatening anemia, at risk for acute worsening of her severe chronic renal disease due to bleeding and due to IV contrast, and also at risk for acute decompensation of her heart disease with hypotension if she develops that. I have discontinued all of her blood pressure lowering medicines and diuretic at this time until we get her stabilized from standpoint of bleeding. SUBJECTIVE: The patient at this time is complaining of severe flank pain after her renal biopsy OBJECTIVE Vitals reviewed: Initially blood pressures were severely high still this morning but they are now and more normal range after some pain medicine; question of some of this lowering of blood pressures due to her bleeding. Otherwise vitals are stable Peer Tutor, my review: All sinus Exam: alert oriented somewhat anxious, and now looks uncomfortable skin warm dry color ok resps not labored lungs clear BSs heart regular abd soft nondistended nontender, bowel sounds present limbs warm, no edema iv site ok Laboratory data: Initial CBC and chemistry were unchanged this morning, with stable but marked creatinine elevation, slightly low potassium, anemia with hemoglobin 7 On repeat H&H after her renal biopsy hemoglobin is now down to 4 Objective: Vital Signs Temp Pulse Resp BP Pulse Ox 36.5 C 62 20 144/102 H 99 08/02/18 18:34 08/02/18 18:34 08/02/18 18:34 08/02/18 18:34 08/02/18 18:34 Laboratory Results 08/02/18 15:15 08/02/18 04:05 08/01/18 08/02/18 08/03/18 06:59 06:59 06:59 Intake Total 1500 500 50 Output Total 4025 3600 1900 Balance -2525 -3100 -1850 PT 14.3 SEC (12.0-15.0) 08/02/18 04:05 INR 1.09 (0.83-1.16) 08/02/18 04:05 ICD10 Worksheet Patient Problems: Problems Problem Status Onset Acute on chronic renal failure Acute Community acquired pneumonia Acute Hypertensive cardiomegaly Acute Hypokalemia Acute Hyponatremia Acute Influenza A Acute Normocytic anemia, not due to blood loss Acute Dehydration Acute Renal insufficiency Acute
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
[2018-08-02] MEDS ORDERED: IOPAMIDOL (ISOVUE-370) 150 ML BTL IV ONE ×3 (19:24→19:28)
--- NOTE | 2018-08-02 20:42 | PDRADPN ---
Radiology Procedure Note Date of Procedure: 08/02/18 Radiologist: Flor Jamison Pre-op Diagnosis: ACUTE LT RENAL BLEED Post-op Diagnosis: SAME Indication: POST BIOPSY BLEED WITH DROPPING HGB Procedure: LT RENAL ANGIOGRAM WITH EMBOLIZATION Finding(s): TWO LT RENAL ARTERIES: UPPER ONE WITH ACTIVE EXTRAVESATION VIA TWO SMALL BRANCHES AT LOWER POLE. LOWER ONE WITH PRE-EXISTING AVF TO PARASPINAL VEINS, LIKELY CONTRIBUTING TO ESSENTIAL HTN. Inf/Abcess present in the surg proc area at time of surgery?: No
[2018-08-02] MEDS ORDERED: ONDANSETRON 4 MG/2 ML VIAL IVP ONE (21:15)
[2018-08-03] MEDS: OXYCODONE/APAP 5/325 TAB PO PRN (01:11)
[2018-08-03] MEDS: LEVOTHYROXINE 150 MCG TAB PO SCH (06:25)
--- NOTE | 2018-08-03 07:20 | HOSPPROG ---
Hospitalist Progress Note Assessment/Plan: DIAGNOSES: * acute hemorrhage following renal biopsy requiring transfusion of red blood cells * Currently no sign of further active bleeding * Status post IR procedure last night for hemorrhage * severe post hemorrhagic anemia * Improved after transfusion yesterday * chronic severe hypertension on multiple medications at home and here * Little if any improvement here so far overall * ? If minoxidil has been tried in the past * ongoing congestive heart failure, systolic * Suspect largely hypertensive disease, could not rule out ischemic or other etiology * Notably worsened from last year * ongoing chronic renal failure unchanged from yesterday, significant progression from last year * Fortunately no change in renal function after small IV contrast dose yesterday , will require follow-up * Hyperphosphatemia today * ongoing chronic anemia of renal failure * acute influenza infection * chronic learning disorder/developmental cognitive disability; this is a lifelong condition that will need more aggressive management in the outpatient setting but also impact how we approach the patient in our conversations regarding diagnostic information and recommended treatments or studies here. PLANS: * Continue to follow hemoglobin very closely * Continue off anticoagulation for the time being * Will review again today with Cardiology and Nephrology as they arrive -? If minoxidil has been tried and if not consider trying that now for blood pressure -attempt diuresis as able * Await results of renal biopsy * Continue contact isolation for influenza * Will review outside records regarding cognitive/learning disabilities when parents bring those in Seen by me today on hospitalist rounds and multidisciplinary rounds SUBJECTIVE: flank pain notably better after last night severe pain, but currently still with minor pain at the biopsy site Some nausea this morning, in fact vomited during my visit with her Renal angiograms last evening did confirm acute arterial bleeding at her renal biopsy site, status post IR procedure for that appears to have been successful OBJECTIVE Vitals reviewed: Blood pressures are high again this morning Dynamite Packing Machine Feeder, my review: All sinus Exam: alert oriented somewhat anxious, and now looks uncomfortable skin warm dry color ok resps not labored lungs clear BSs heart regular abd soft nondistended nontender, bowel sounds present; still flank tenderness limbs warm, no edema iv site ok Laboratory data: Creatinine slightly better today but remains at her current baseline Hemoglobin now improved after transfusions last evening, back to her current baseline of 7 Phosphorus high at 8 today Objective: Vital Signs Temp Pulse Resp BP Pulse Ox 36.6 C 70 22 H 158/104 H 95 08/03/18 05:00 08/03/18 05:50 08/03/18 05:50 08/03/18 05:50 08/03/18 05:50 Laboratory Results 08/03/18 05:45 08/03/18 05:45 08/02/18 08/03/18 08/04/18 06:59 06:59 06:59 Intake Total 500 340 Output Total 3600 2400 Balance -3100 -2060 PT 14.3 SEC (12.0-15.0) 08/02/18 04:05 INR 1.09 (0.83-1.16) 08/02/18 04:05 - Time Spent With Patient Time Spent with Patient: greater than 35 minutes Time Spent with Patient: Greater than 35 minutes spent on this patients care, greater than 50% of time spent counseling, educating, and coordinating care regarding the above mentioned plan. ICD10 Worksheet Patient Problems: Problems Problem Status Onset Acute on chronic renal failure Acute Community acquired pneumonia Acute Hypertensive cardiomegaly Acute Hypokalemia Acute Hyponatremia Acute Influenza A Acute Normocytic anemia, not due to blood loss Acute Dehydration Acute Renal insufficiency Acute
[2018-08-03] MEDS: FUROSEMIDE 80 MG TAB PO SCH ×2 (08:00→16:15)
[2018-08-03] MEDS: CARVEDILOL 25 MG TAB PO SCH ×2 (08:01→18:28)
[2018-08-03] MEDS: amLODIPine BESYLATE 5 MG TAB PO SCH ×2 (08:01→20:22)
[2018-08-03] MEDS: OSELTAMIVIR 6 MG/ML UDSYR PO SCH (09:31)
--- NOTE | 2018-08-03 10:32 | SOAPPROG ---
SOAP Progress Note Assessment/Plan: Assessment: POD#1 s/p superselective renal artery lower pole branch embolization for acute hemorrhage from renal biopsy. Hemodynamically stable and H/H back to baseline. Incidental large left lumbar artery arteriovenous fistula was also embolized (consider possible contributor to patients heart failure?) The chronic AVF was large/well developed and likely been present for many years with an unknown origin congenital vs. remote trauma. Plan: 08/03/18 10:27 Continue to monitor H/H. 08/03/18 11:07 Subjective: Somnolent, complains of pain in flank controlled with medications. Objective: Vital Signs Temp Pulse Resp BP Pulse Ox 36.6 C 70 22 H 158/104 H 95 08/03/18 05:00 08/03/18 05:50 08/03/18 05:50 08/03/18 05:50 08/03/18 05:50 Laboratory Results 08/03/18 05:45 08/03/18 05:45 08/02/18 08/03/18 08/04/18 05:59 05:59 05:59 Intake Total 500 340 Output Total 4000 2400 Balance -3500 -2060 PT 14.3 SEC (12.0-15.0) 08/02/18 04:05 INR 1.09 (0.83-1.16) 08/02/18 04:05 ICD10 Worksheet Patient Problems: Problems Problem Status Onset Acute on chronic renal failure Acute Community acquired pneumonia Acute Hypertensive cardiomegaly Acute Hypokalemia Acute Hyponatremia Acute Influenza A Acute Normocytic anemia, not due to blood loss Acute Dehydration Acute Renal insufficiency Acute
--- NOTE | 2018-08-03 19:24 | SOAPPROG ---
SOAP Progress Note Assessment/Plan: Assessment: 1. arf: b/l creat 2 a year ago with dipstick proteinuria, now presents with creat 4 and nephrotic-range proteinuria. Kidneys quite large on u/s, suggesting infiltrative process (DM, amyloid, HIV, scleroderma, etc). Now s/p bx yesterday , I checked with nephropatholgy lab and results are not yet available. Would anticipate these Mon. Serologies negative thus far but some still pending. Unfortunately, this likely reflects progressive ckd over past year and I am not optimistic that her renal dz will be treatable regardless of dx. Creat stable despite events of past 24hrs, it is possible her creat may drift down a bit as diuresis slows. 2. htn: I suspect this is chronic and has probably accelerated progression of her renal dz. Much improved from admit, would cont diuresis and cont other meds as well. Once vol status stable would consider low-dose acei, though this would require close f/u in light of gfr. Interestingly, incidentally found to have renal artery-paraspinous avf at time of renal arteriogram and this was embolized. Unclear if this was playing any role in htn but if so would expect bp to improve shortly. Aldosterone appropriately suppressed, renin pending. 3. Overload: much improved but remains volume up. Cont diuresis, now on po lasix. 4. anemia: s/p bleed, transfused. Will ultimately need epo but would want bp well controlled first. Would benefit from iron. 5. HypoNa: resolving with po fluid restriction + diuresis 6. post-bx bleed: transfused and embolized. Hgb appears to be stabilizing. Plan: 07/30/18 16:45 07/30/18 16:54 07/31/18 14:56 08/03/18 19:17 Subjective: Events of past 24hrs reviewed. Underwent renal bx yesterday, then experienced sig post-bx bleed requiring transfusion and renal angio with embolization. In icu since, hgb appears to have stabilized. Mother, sister present; pt sleeping much of the day. Still with some discomfort but not as much pain as yesterday. Objective: Vital Signs Temp Pulse Resp BP Pulse Ox 36.4 C 74 16 141/86 H 90 L 08/03/18 16:00 08/03/18 18:00 08/03/18 18:00 08/03/18 18:00 08/03/18 18:00 Laboratory Results 08/03/18 14:38 08/03/18 05:45 08/02/18 08/03/18 08/04/18 05:59 05:59 05:59 Intake Total 715 830 1687 Output Total 4000 2400 300 Balance -3500 -2060 850 PT 14.3 SEC (12.0-15.0) 08/02/18 04:05 INR 1.09 (0.83-1.16) 08/02/18 04:05 Physical Exam - Physical Exam General Appearance: no apparent distress Respiratory: lungs clear Cardiac/Chest: regular rate, rhythm Abdomen: non-tender, soft Back: CVA tenderness (on Left) Extremities: pedal edema (improved from previous) ICD10 Worksheet Patient Problems: Problems Problem Status Onset Acute on chronic renal failure Acute Community acquired pneumonia Acute Hypertensive cardiomegaly Acute Hypokalemia Acute Hyponatremia Acute Influenza A Acute Normocytic anemia, not due to blood loss Acute Dehydration Acute Renal insufficiency Acute
[2018-08-03] MEDS: traMADol 50 MG TAB PO PRN (20:22)
[2018-08-04] MEDS: traMADol 50 MG TAB PO PRN ×2 (04:03→09:33)
--- NOTE | 2018-08-04 04:35 | GCON ---
CRITICAL CARE CONSULTATION REASON FOR CONSULTATION: Acute blood loss anemia following renal biopsy. HISTORY: The patient is a 23-year-old, who was admitted to the hospital on July 29, with increasin g fluid retention. She has a history of chronic renal failure and difficult to control hypertension. She underwent renal biopsy on August 02. This was followed by a bleed requiring IR intervention a nd embolization. She was transferred to the intensive care unit. She received 2 units of packed red blood cells. PAST MEDICAL HISTORY: Remarkable for developmental delay, hypertension, and hypothyroidism on replac ement. MEDICATIONS: On admission included verapamil, carvedilol, hydralazine, and Synthroid. SOCIAL HISTORY: Tobacco and alcohol are negative. Lives with parents. FAMILY HISTORY: Negative/noncontributory. REVIEW OF SYSTEMS: A 10-point review of systems is negative except as outlined above. There is no h istory of coronary artery disease, diabetes, lung disease. PHYSICAL EXAMINATION: GENERAL: Reveals a young woman who is in a chair. She has pain reported on t he left flank. VITALS: Blood pressure is 150/90, heart rate 77 with sinus rhythm on the monitor. O n room air, saturations are 92%. Respiratory rate is 18. HEENT: Unremarkable for lymphadenopathy o r thyromegaly. There is no jugular venous distention. LUNGS: Clear. HEART: Regular rate and rhyt hm without murmur or gallop. ABDOMEN: Soft and nontender. There is flank tenderness on the left. There are no edema, cords, or tenderness. DATABASE: Hematocrit on admission was in the 22-24 range. Prior to her blood transfusion, this drop ped to 15 with a hemoglobin of 4.7. Following blood, it was back to 22-24. Hematocrit this afternoo n approximately 10 hours after her morning blood draw was 21.3, stable. White blood cell count is 13 000. Platelets are normal. Sodium is 134, potassium 4.0, BUN 71, with a creatinine of 4.6, down fro m a high of 75 and 4.7. Influenza screening on July 29, was positive for influenza A. HENRY and com plements are negative. Hepatitis serology is negative as is HIV. Strep design is less than 25. ASSESSMENT: 1. Acute blood loss anemia, secondary to delayed bleeding associated with renal biopsy. She is stat us post renal embolization and is doing well. Hematocrit is stable. She does have some associated p ain from her perinephric hematoma. 2. Acute on chronic renal failure. BUN and creatinine are somewhat better. She is being followed b y Renal. Renal biopsy results will be awaited. Dialysis is being considered. 3. Systemic hypertension, difficult to control. On several medications at the present time. Per Re nal. 4. Heart failure. She has been evaluated by Cardiology. This is felt to be secondary to hypertensi ve disease. Interestingly, she did have a large and probably chronic AVM which was embolized at the same time as her renal embolization. High-output congestive heart failure possibly was present secon afshan to this. 5. Influenza A. 6. Developmental delay. PLAN AND RECOMMENDATIONS: The patient will be kept in the intensive care unit for now. She will be transitioned to SDU status. Hemoglobin and hematocrit will be repeated in the a.m. Laboratory will be followed. Further plans and recommendations will be made based on her progress over the next 12-24 hours. /[id number]/MODL
[2018-08-04] MEDS: LEVOTHYROXINE 150 MCG TAB PO SCH (06:02)
[2018-08-04] MEDS: FUROSEMIDE 80 MG TAB PO SCH ×2 (08:11→15:23)
[2018-08-04] MEDS: amLODIPine BESYLATE 5 MG TAB PO SCH ×2 (08:11→20:27)
[2018-08-04] MEDS: CARVEDILOL 25 MG TAB PO SCH ×2 (08:11→17:07)
--- NOTE | 2018-08-04 12:07 | PDINTPN ---
Perinatal Director Progress Note Assessment/Plan: Assessment: Status post renal bleed following biopsy. Embolized. Acute blood-loss anemia. On top of chronic anemia. Hematocrit 19 this morning , drifting down. No evidence of ongoing bleeding. For 1 unit. Chronic kidney disease. Status post biopsy. Results pending. Per Renal. Hypertension: Well controlled at this point on 4 medications. Plan: 1 unit of packed red blood cells today. Can transfer to medical- surgical status after. Continue antihypertensives. Await renal biopsy results. 25 min of clinic time spent directly with the patient. Discussed with nursing, hospitalist and the ICU multi disciplinary team. Subjective: Doing better. Left flank pain is better. Swelling better. Objective: Vital Signs Temp Pulse Resp BP Pulse Ox 37.1 C 77 21 H 131/74 H 93 08/04/18 11:20 08/04/18 11:20 08/04/18 11:20 08/04/18 11:20 08/04/18 11:20 Microbiology 07/29/18 10:55 Blood Culture - Final Blood Laboratory Results 08/04/18 04:05 08/04/18 04:05 08/03/18 08/04/18 08/05/18 05:59 05:59 05:59 Intake Total 340 1750 Output Total 2400 825 550 Balance -2060 925 -550 PT 14.3 SEC (12.0-15.0) 08/02/18 04:05 INR 1.09 (0.83-1.16) 08/02/18 04:05 Physical Exam - Physical Exam General Appearance: alert, no apparent distress EENT: other (On room air) Neck: normal inspection Respiratory: lungs clear, normal breath sounds Cardiac/Chest: regular rate, rhythm Abdomen: non-tender, soft Pelvic Exam: other (No Barriga, good urine output) Skin: warm/dry, pallor Extremities: pedal edema Neuro/Psych: no motor/sensory deficits, No cognition abnormalities ICD10 Worksheet Patient Problems: Problems Problem Status Onset Dehydration Acute Renal insufficiency Acute Community acquired pneumonia Acute Normocytic anemia, not due to blood loss Acute Acute on chronic renal failure Acute Hypokalemia Acute Hyponatremia Acute Hypertensive cardiomegaly Acute Influenza A Acute
--- NOTE | 2018-08-04 14:37 | CPEKG ---
Test Reason : OPEN Blood Pressure : / mmHG Vent. Rate : 053 BPM Atrial Rate : 054 BPM P-R Int : 190 ms QRS Dur : 099 ms QT Int : 561 ms P-R-T Axes : 039 032 055 degrees QTc Int : 527 ms Sinus rhythm Left atrial enlargement ST depression consistent with anterior-lateral ischemia. Prolonged QT interval Confirmed by Guido Morris ([id number]) on 08/04/2018 2:36:38 PM Referred By: Confirmed By:Guido Morris
--- NOTE | 2018-08-04 18:54 | SOAPPROG ---
SOAP Progress Note Assessment/Plan: Assessment: 1. arf: b/l creat 2 a year ago with dipstick proteinuria, now presents with creat 4 and nephrotic-range proteinuria. Kidneys quite large on u/s, suggesting infiltrative process but spep neg. Now s/p bx Sunday, anticipate results Sunday. Serologies negative. Unfortunately, this likely reflects progressive ckd over past year and I am not optimistic that her renal dz will be treatable regardless of dx. Creat stable despite events of past 24hrs, it is possible her creat may drift down a bit now that diuresis slowed. 2. htn: I suspect this is chronic and has probably accelerated progression of her renal dz. Much improved from admit, cont current meds. Remains volume up but much improved from admit. Incidentally found to have renal artery- paraspinous avf at time of renal arteriogram which was embolized. Unclear if this was playing any role in htn but has improved past 48hrs. Aldosterone appropriately suppressed, renin still pending. 3. Overload: much improved but remains volume up. Uo has dropped on po lasix but staying approx even. 4. anemia: s/p bleed, transfused. Will ultimately need epo but would want bp well controlled first. Would benefit from iron. 5. HypoNa: had been improving but worse again today, possibly due to decreased uo. May need to enforce po fluid restriction more diligently. 6. post-bx bleed: transfused and embolized. Add'l prbc's today but pain improved per pt so suspect this is simply equilabration. Plan: 07/30/18 16:45 07/30/18 16:54 07/31/18 14:56 08/03/18 19:17 08/04/18 18:50 Subjective: Rec'd add'l prbc's today for dec hgb. Flank pain improved. Denies sob. Objective: Vital Signs Temp Pulse Resp BP Pulse Ox 36.4 C 75 21 H 145/86 H 100 08/04/18 15:22 08/04/18 15:22 08/04/18 15:22 08/04/18 15:22 08/04/18 15:22 Microbiology 07/29/18 10:55 Blood Culture - Final Blood Laboratory Results 08/04/18 18:20 08/04/18 04:05 08/03/18 08/04/18 08/05/18 05:59 05:59 05:59 Intake Total 340 1750 1324 Output Total 2400 825 975 Balance -206 925 349 PT 14.3 SEC (12.0-15.0) 08/02/18 04:05 INR 1.09 (0.83-1.16) 08/02/18 04:05 Physical Exam - Physical Exam General Appearance: no apparent distress Respiratory: lungs clear Cardiac/Chest: regular rate, rhythm Abdomen: soft Back: CVA tenderness (L) Extremities: pedal edema (trace, much improved from prev) ICD10 Worksheet Patient Problems: Problems Problem Status Onset Acute on chronic renal failure Acute Community acquired pneumonia Acute Hypertensive cardiomegaly Acute Hypokalemia Acute Hyponatremia Acute Influenza A Acute Normocytic anemia, not due to blood loss Acute Dehydration Acute Renal insufficiency Acute
--- NOTE | 2018-08-04 19:09 | HOSPPROG ---
Hospitalist Progress Note Assessment/Plan: DIAGNOSES: * acute hemorrhage following renal biopsy requiring transfusion of red blood cells * Her Hg dropped a point again today and BPs a bit lower (though we are diuresing and on 4 additional antihypertensive meds) * Status post IR procedure w arterial embolization 08/02 for hemorrhage * severe post hemorrhagic anemia (on top of chronic anemia of renal disease) * 2 units rbc given 08/02 * more transfusion indicated at present * chronic severe hypertension on multiple medications at home and here * finally improving but ? if there might be further bleeding * ongoing congestive heart failure, systolic * notable decrease in EF compared to a year ago, likely due to HTN * is diuresing * ongoing chronic renal failure unchanged from yesterday, but significant progression from last year * tolerated IV contrast for angiography in IR ok * Hyperphosphatemia a bit better today * ongoing chronic anemia of renal failure * acute influenza infection * chronic learning disorder/developmental cognitive disability; this is a lifelong condition that will need more aggressive management in the outpatient setting but also impact how we approach the patient in our conversations regarding diagnostic information and recommended treatments or studies here. See my second progress note of 08/02 (timed 18:54) for a history and description of her symptoms and issues. Her mother has now brought in records which I have reviewed - these are from a school psychologist from age 13. 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 Formal neuropsychiatric testing was discussed in the report but again reviewing with mother this was never done. The patient did require special ed programs and assistance all thur her schooling. This is clearly a major factor in the patient's inability/unwillingness to engage in any outpatient medical care for her BP/heart/renal issues over past few years. PLANS: * transfuse one more unit RBCs today * Continue to follow hemoglobin very closely, further transfusions as necessary * Continue off anticoagulation for the time being * Continue current diuresis and antihypertensives, follow closely * Await results of renal biopsy * Continue contact isolation for influenza * I have reviewed her neuro/cog issues with Dr Carli Parish of cardiology and Dr Swain of nephrology, as well as nursing staff here. * Dr Parish has agreed to take her on as an outpt clinic patient, with neuro/cog and communication issues in mind, and the nephrology team will be able to do the same. * I will talk with social workers about looking more into setting up services to help pt engage with and navigate outpt care; if formal neuropsych testing is available in the community for medicaid patient that would also be very helpful Seen by me today on hospitalist rounds and multidisciplinary rounds SUBJECTIVE: still some mild flank pain eating well ambulating ok but a bit orthostatic symptoms, likely due to having good blood pressures for first time in a very long time OBJECTIVE Vitals reviewed: Blood pressures notably better today, otherwise stable with no fever [employer], my review: All sinus Exam: alert oriented somewhat anxious, resps not labored lungs clear BSs heart regular abd soft nondistended nontender, bowel sounds present; still flank tenderness limbs warm, little edema iv site ok Laboratory data: Creatinine and K stable, Phos a bit better at 7, Na lower at 129 Hg down to 6.8 this am, one unit of RBCs given today and repeat Hg only a bit better at 7.3 Objective: Vital Signs Temp Pulse Resp BP Pulse Ox 36.4 C 75 21 H 145/86 H 100 08/04/18 15:22 08/04/18 15:22 08/04/18 15:22 08/04/18 15:22 08/04/18 15:22 Microbiology 07/29/18 10:55 Blood Culture - Final Blood Laboratory Results 08/04/18 18:20 08/04/18 04:05 08/03/18 08/04/18 08/05/18 06:59 06:59 06:59 Intake Total 340 1750 1324 Output Total 2400 825 975 Balance -2060 925 349 PT 14.3 SEC (12.0-15.0) 08/02/18 04:05 INR 1.09 (0.83-1.16) 08/02/18 04:05 - Time Spent With Patient Time Spent with Patient: greater than 35 minutes Time Spent with Patient: Greater than 35 minutes spent on this patients care, greater than 50% of time spent counseling, educating, and coordinating care regarding the above mentioned plan. ICD10 Worksheet Patient Problems: Problems Problem Status Onset Acute on chronic renal failure Acute Community acquired pneumonia Acute Hypertensive cardiomegaly Acute Hypokalemia Acute Hyponatremia Acute Influenza A Acute Normocytic anemia, not due to blood loss Acute Dehydration Acute Renal insufficiency Acute
[2018-08-04] MEDS: OXYCODONE/APAP 5/325 TAB PO PRN (20:26)
[2018-08-04] MEDS: BENZONATATE 100 MG CAP PO PRN (23:14)
[2018-08-05 05:32] LABS: PLATELET COUNT 487 10^3/uL (150-400)
[2018-08-05] MEDS: LEVOTHYROXINE 150 MCG TAB PO SCH (06:20)
[2018-08-05] MEDS: CARVEDILOL 25 MG TAB PO SCH ×2 (08:50→16:42)
[2018-08-05] MEDS: amLODIPine BESYLATE 5 MG TAB PO SCH ×2 (08:50→20:04)
[2018-08-05] MEDS: FUROSEMIDE 80 MG TAB PO SCH ×2 (09:12→15:17)
--- NOTE | 2018-08-05 10:00 | SOAPPROG ---
SOAP Progress Note Assessment/Plan: Assessment/Plan: CEDRIC on CKD 3: baseline Cr was 2 last year, now up to 4 with nephrotic range proteinuria. Serologies negative thus far but still some pending. She may have quickly progressive renal disease that may not be treatable, but will confirm diagnosis. - No need for HD at this time. - Renal biopsy done on Sunday, awaiting results, likely back this afternoon. - Will continue to monitor. HTN: BP markedly improved on current meds. Anemia: s/p bleed from renal biopsy requiring IR intervention and embolization, transfused again yesterday, Hgb stable today at 7.3, will continue to monitor. Hyponatremia: Na stable at 129, will place on 1500ml fluid restriction as well as continue Lasix. Hypervolemia: improving with diuresis. Subjective: No acute events overnight. Pt states that she is feeling a bit cold after a shower. She also felt a bit anxious overnight, happened a few nights ago as well , did not sleep well. Objective: Vital Signs Temp Pulse Resp BP Pulse Ox 37.2 C 83 20 135/82 H 95 08/05/18 07:32 08/05/18 07:32 08/05/18 07:32 08/05/18 07:32 08/05/18 07:32 Microbiology 07/29/18 10:55 Blood Culture - Final Blood Laboratory Results 08/05/18 05:00 08/05/18 05:00 08/04/18 08/05/18 08/06/18 05:59 05:59 05:59 Intake Total 1750 1924 Output Total 825 975 Balance 925 949 PT 14.3 SEC (12.0-15.0) 08/02/18 04:05 INR 1.09 (0.83-1.16) 08/02/18 04:05 General: alert and oriented, no acute distress Eyes: EOMI, PERRL OP: Clear CV: RRR REsp: nonlabored respirations on NC Abd: Soft, NT/ND Ext: trace edema BLE Neuro: CN II-XII grossly intact, no asterixis Psych: cooperative ICD10 Worksheet Patient Problems: Problems Problem Status Onset Acute on chronic renal failure Acute Community acquired pneumonia Acute Hypertensive cardiomegaly Acute Hypokalemia Acute Hyponatremia Acute Influenza A Acute Normocytic anemia, not due to blood loss Acute Dehydration Acute Renal insufficiency Acute
[2018-08-05] MEDS ORDERED: LORazepam 0.5 MG TAB PO PRN (10:37)
--- NOTE | 2018-08-05 14:05 | ASMTCMCOM ---
CM Note CM Note Notes: CM met with pt and her mother, Adriana who was at bedside. She reports that she would appreciate any services that would be helpful at discharge. MD ordered Speech therapy/Cognitive eval. [facility] reports they will meet with pt tomorrow when they are in the hospital. CM spoke with MD about Palliative Care order. CM spoke with [facility] and they do not have a lining caser there and could benefit from Community Based Services. CM to discuss options with pt and family and submit referrals as indicated. CM to follow. D/C Plan: TBD Date Signed: 08/05/2018 02:04 PM Electronically Signed By:VENITA Blum
[2018-08-05] MEDS: OXYCODONE/APAP 5/325 TAB PO PRN (15:20)
--- NOTE | 2018-08-05 17:47 | HOSPPROG ---
Hospitalist Progress Note Assessment/Plan: Subjective Follow-up on influenza infection, acute systolic heart failure, acute on top of chronic kidney disease, and acute blood loss anemia secondary to bleeding from renal biopsy. Patient was seen today in the setting of the [place] speaking public health doctor. Patient states she still having some discomfort in her flank will on the left where the biopsy was taken. She has not noted any worsening bleeding issues. She did state she was somewhat short of breath when ambulating to and from the bathroom but not needing any supplemental oxygen. No complaints of any chest pain or chest pressure. Case was reviewed on rounds with case management. Speech therapy consultation was discussed to further assess cognitive disability. Objective Vital signs as detailed below Exam General-awake alert conversant no acute distress Heart-regular rate and rhythm no murmurs, soft heart sounds Lungs-Clear to auscultation with normal respiratory effort Abdomen-soft nontender nondistended normal bowel sounds -no Barriga catheter in place Extremities-pitting edema both lower extremities, compression devices in place Skin-no concerning skin rashes noted Labs as detailed below Assessment and plan Influenza a infection-this was found on admission and patient has completed a course of Tamiflu. She seems to be recovering okay from this aspect. Acute systolic heart failure-appreciate cardiology's input on the case. Her ejection fraction was measured at 40 to 45%. Possibly multifactorial with uncontrolled hypertension playing a role and possibly also concurrent viral illness. Continue diuresis with Lasix along with medical therapy. Acute on chronic kidney disease-her baseline creatinine was listed at somewhere around 2 previously but has increased to 4. Patient underwent a kidney biopsy for further evaluation as ultrasound was suggestive of an infiltrative process as kidneys were mildly enlarged. Appreciate Nephrology assistance on the case. Acute blood loss anemia-this was secondary to renal biopsy. This appears to have stabilized with her hemoglobin remaining stable today at 7.3. Hypertension-some elevated readings overnight but seems to be improving this morning. No changes for now. Continue current amlodipine Lasix Coreg and hydralazine. Cognitive disability-speech therapy consultation requested today. Hypothyroidism-levothyroxine. DVT prophylaxis-compression devices. No heparin or Lovenox in light of bleeding. Disposition-patient appears to have good family support likely could be discharged back under care with her family once medically ready. Objective: Vital Signs Temp Pulse Resp BP Pulse Ox 37.2 C 74 16 119/82 H 93 08/05/18 07:32 01/14/19 15:32 08/05/18 15:32 08/05/18 15:32 08/05/18 15:32 Laboratory Results 08/05/18 05:00 08/05/18 05:00 08/04/18 08/05/18 08/06/18 05:59 05:59 05:59 Intake Total 1750 1924 Output Total 825 975 Balance 925 949 PT 14.3 SEC (12.0-15.0) 08/02/18 04:05 INR 1.09 (0.83-1.16) 08/02/18 04:05 ICD10 Worksheet Patient Problems: Problems Problem Status Onset Acute on chronic renal failure Acute Community acquired pneumonia Acute Hypertensive cardiomegaly Acute Hypokalemia Acute Hyponatremia Acute Influenza A Acute Normocytic anemia, not due to blood loss Acute Dehydration Acute Renal insufficiency Acute
[2018-08-06] MEDS: OXYCODONE/APAP 5/325 TAB PO PRN (03:06)
[2018-08-06] MEDS: LEVOTHYROXINE 150 MCG TAB PO SCH (05:48)
[2018-08-06 06:56] LABS: PLATELET COUNT 543 10^3/uL (150-400)
[2018-08-06] MEDS: amLODIPine BESYLATE 5 MG TAB PO SCH ×2 (09:11→20:14)
[2018-08-06] MEDS: CARVEDILOL 25 MG TAB PO SCH ×2 (09:11→19:09)
[2018-08-06] MEDS: FUROSEMIDE 80 MG TAB PO SCH ×2 (09:11→15:16)
--- NOTE | 2018-08-06 11:47 | SOAPPROG ---
SOAP Progress Note Assessment/Plan: Assessment/Plan: 23 y/o F with a known h/o HTN and CKD who presented with nephrotic range proteinuria. Etiology unclear and initial biopsy specimen only shows LM with 35 glomeruli and very little glomerulosclerosis, however moderate/ severe arteriosclerosis with evidence of hypertensive disease. Contacted [employer] who will attempt to run EM and IF on specimens tomorrow. Patient is heading towards dialysis with worsening creatinine and hyponatremia. She appears very depressed with a h/o cognitive deficit and is refusing dialysis. Her father is present at bedside. CEDRIC on CKD 3: - baseline Cr was 2 last year, now >5 and still rising with >5g proteinuria on spot - etiology unclear and may be severe ATN on CKD 2/2 to recent PNA - Serologies negative to date, however will await further biopsy results as above - Patient currently refusing dialysis, will need to decide if decisional (psych consult called per primary team) - Will continue to monitor and likely will need HD in the near future HTN/vol: BP's improved. Continue current regimen. Anemia: S/p bleed from renal biopsy requiring IR intervention and embolization, transfused again yesterday, Hgb down to 7.0g today. Continue to monitor. Hyponatremia: Na stable at 129, will decrease fluid restriction to 1L. Continue lasix 80mg BID. 08/06/18 14:26 Subjective: Patient is very anxious to go home. Awaiting renal biopsy specimen. Objective: Vital Signs Temp Pulse Resp BP Pulse Ox 36.8 C 77 20 124/84 H 98 08/06/18 09:10 08/06/18 09:11 08/06/18 08:00 08/06/18 09:11 08/06/18 08:00 Laboratory Results 08/06/18 06:00 08/06/18 06:00 08/05/18 08/06/18 08/07/18 05:59 05:59 05:59 Intake Total 1924 1500 Output Total 975 2300 Balance 949 -800 PT 14.3 SEC (12.0-15.0) 08/02/18 04:05 INR 1.09 (0.83-1.16) 08/02/18 04:05 Physical Exam - Physical Exam General Appearance: WD/WN, alert, no apparent distress, obese EENT: PERRL/EOMI Neck: non-tender, full range of motion, supple Respiratory: chest non-tender, lungs clear Cardiac/Chest: normal peripheral pulses, regular rate, rhythm, edema Abdomen: normal bowel sounds, non-tender, soft Skin: normal color, warm/dry Extremities: normal range of motion, non-tender Neuro/Psych: no motor/sensory deficits, alert, oriented x 3, depressed affect ICD10 Worksheet Patient Problems: Problems Problem Status Onset Acute on chronic renal failure Acute Community acquired pneumonia Acute Hypertensive cardiomegaly Acute Hypokalemia Acute Hyponatremia Acute Influenza A Acute Normocytic anemia, not due to blood loss Acute Dehydration Acute Renal insufficiency Acute
--- NOTE | 2018-08-06 12:16 | ASMTCMCOM ---
CM Note CM Note Notes: CM submit [id number] application to apply for home based services. Pt signed on with [facility] for community care coordination follow-up after discharge. CM discussed Palliative Care during rounds and will follow-up. CM discussed pt's care with Dr. Holly. Will collaborate with [facility] to obtain appropriate follow-up appts for discharge. CM to follow. Plan: TBD Date Signed: 08/06/2018 12:15 PM Electronically Signed By:VENITA Blum
--- NOTE | 2018-08-06 12:40 | HOSPPROG ---
Hospitalist Progress Note Assessment/Plan: Assessment and plan Influenza A - s/p Tamiflu. Acute systolic heart failure - EF 40 to 45%. Possibly multifactorial with uncontrolled hypertension playing a role and possibly also concurrent viral illness. -cont Lasix Acute on chronic kidney disease - Baseline Cr ~2.0, now 5.3. S/P biopsy, path report says hypertensive nephropathy. Also consider ATN with recent infection and ABLA (hgb down to 4.7 post biopsy). Discussed with nephrology, who notes nephrotic range proteinuria, requested path be sent to OSH for immunofluorescence staining. -renal following, may need dialysis catheter -avoid nephrotoxic agents -daily renal function panel Anemia - ABLA from hemorrhage after renal bx (s/p embolization), plus probable anemia of CKD - Hgb stable, though a bit lower today. Discussed with heme. -trend h&h -start iron therapy -consider epo, will d/w renal Leukocytosis - wbc's 6K --> 20K, with left shift. Afebrile. No clinical signs of infection -repeat renal u/s to eval for abscess Hypertension - cont amlodipine, Lasix, Coreg, and hydralazine. Cognitive disability-speech therapy consultation requested today. Hypothyroidism-levothyroxine. Suspected mood disorder - requested psych consult from [facility] to assist with mood disorder and opinion re: decisional capacity -will place medical detainer as I don't think she is making appropriate decisions to leave AMA (especially with Na lower) -note pt also stated she would rather than have dialysis DVT prophylaxis - SCD's, no heparin or Lovenox in light of bleeding. Disposition- cont inpt, patient appears to have good family support likely could be discharged back under care with her family once medically ready. Subjective: Pt is withdrawn. Denies fevers, had some chills in the shower. Denies flank pain or abdominal pain. No N/V. Objective: Vital Signs Temp Pulse Resp BP Pulse Ox 36.8 C 77 20 124/84 H 98 08/06/18 09:10 08/06/18 09:11 08/06/18 08:00 08/06/18 09:11 08/06/18 08:00 Laboratory Results 08/06/18 06:00 08/06/18 06:00 08/05/18 08/06/18 08/07/18 05:59 05:59 05:59 Intake Total 1924 1500 Output Total 975 2300 Balance 949 -800 PT 14.3 SEC (12.0-15.0) 08/02/18 04:05 INR 1.09 (0.83-1.16) 08/02/18 04:05 - Physical Exam Constitutional: no apparent distress Eyes: PERRL Ears, Nose, Mouth, Throat: moist mucous membranes Cardiovascular: regular rate and rhythym Respiratory: no respiratory distress, clear to auscultation Gastrointestinal: normoactive bowel sounds, soft, non-tender abdomen, other (no CVA tenderness) Skin: warm Musculoskeletal: full muscle strength Neurologic: AAOx3 Psychiatric: flat affect, poor insight ICD10 Worksheet Patient Problems: Problems Problem Status Onset Acute on chronic renal failure Acute Community acquired pneumonia Acute Hypertensive cardiomegaly Acute Hypokalemia Acute Hyponatremia Acute Influenza A Acute Normocytic anemia, not due to blood loss Acute Dehydration Acute Renal insufficiency Acute
[2018-08-06] MEDS: ACETAMINOPHEN 325 MG TAB PO PRN (15:19)
[2018-08-06] MEDS: FERROUS SULFATE 325 MG TAB PO SCH (15:50)
[2018-08-06] MEDS: SEVELAMER HCL 800 MG TAB PO SCH (19:09)
[2018-08-07] MEDS: OXYCODONE/APAP 5/325 TAB PO PRN ×2 (00:34→19:54)
[2018-08-07] MEDS: LEVOTHYROXINE 150 MCG TAB PO SCH (05:12)
[2018-08-07] MEDS: amLODIPine BESYLATE 5 MG TAB PO SCH ×2 (09:19→22:02)
[2018-08-07] MEDS: CARVEDILOL 25 MG TAB PO SCH ×2 (09:19→17:20)
[2018-08-07] MEDS: FERROUS SULFATE 325 MG TAB PO SCH (09:19)
[2018-08-07] MEDS: SEVELAMER HCL 800 MG TAB PO SCH ×3 (09:19→17:20)
[2018-08-07] MEDS: FUROSEMIDE 80 MG TAB PO SCH ×2 (09:19→17:24)
--- NOTE | 2018-08-07 09:25 | SOAPPROG ---
SOAP Progress Note Assessment/Plan: Assessment: CEDRIC, creat continues to slowly increase CKD 4, baseline creat about 2 nephrotic range proteinuria on Up/c ratio hyponatremia, not sticking to her fluid restriction, Na 125 today anemia of blood loss after biopsy back pain at site of biopsy, US yesterday shows 5.8x8x2.7 cm hematoma Plan: continues to refuse HD, no urgent indication at this point should get biopsy results back from [facility] today, I have called them and they will give me a call when results are available continue fluid restriction biopsy results will determine what if anything needs to be changed interview was done with an aquatics instructor 08/07/18 09:19 Subjective: up to chair still with some back pain, used some narcotic last night no cp sob nausea or vomiting eating OK, appetite OK mother at bedside still unsure if patient is decisional, evaluation underway Objective: Vital Signs Temp Pulse Resp BP Pulse Ox 36.8 C 85 18 128/71 H 93 08/07/18 08:00 08/07/18 08:00 08/07/18 05:05 08/07/18 08:00 08/07/18 08:00 Laboratory Results 08/06/18 06:00 08/06/18 06:00 08/06/18 08/07/18 08/08/18 05:59 05:59 05:59 Intake Total 1500 660 Output Total 2300 2750 Balance -800 -2090 PT 14.3 SEC (12.0-15.0) 08/02/18 04:05 INR 1.09 (0.83-1.16) 08/02/18 04:05 Physical Exam - Physical Exam General Appearance: alert, other (up to chair) Neck: normal inspection Respiratory: rales (in bases), No rhonchi, No wheezing Cardiac/Chest: regular rate, rhythm, systolic murmur, No friction rub Abdomen: normal bowel sounds, non-tender, soft Extremities: swelling Neuro/Psych: alert (cooperative with the interview) ICD10 Worksheet Patient Problems: Problems Problem Status Onset Acute on chronic renal failure Acute Community acquired pneumonia Acute Hypertensive cardiomegaly Acute Hypokalemia Acute Hyponatremia Acute Influenza A Acute Normocytic anemia, not due to blood loss Acute Dehydration Acute Renal insufficiency Acute
[2018-08-07 10:31] LABS: PLATELET COUNT 667 10^3/uL (150-400)
[2018-08-07] MEDS ORDERED: POTASSIUM CL 20 MEQ TAB PO ONE (12:30)
--- NOTE | 2018-08-07 12:48 | HOSPPROG ---
Hospitalist Progress Note Assessment/Plan: Assessment and plan Influenza A - s/p Tamiflu. Acute systolic heart failure - EF 40 to 45%. Possibly multifactorial with uncontrolled hypertension playing a role and possibly also viral illness. -cont Lasix Acute on chronic kidney disease - Baseline Cr ~2.0, now 5.9. S/P biopsy, path report says hypertensive nephropathy. Also consider ATN with recent infection and ABLA (hgb down to 4.7 post biopsy). Discussed with nephrology, who notes nephrotic range proteinuria, requested path be sent to OSH for immunofluorescence staining. -renal following, may need dialysis catheter -avoid nephrotoxic agents -daily renal function panel Anemia - ABLA from hemorrhage after renal bx (s/p embolization), plus probable anemia of CKD - Hgb stable. -trend h&h -started iron therapy -consider epo, d/w renal Leukocytosis - wbc's 6K --> 20K --> 17K, with left shift. Afebrile. No clinical signs of infection. -repeat renal u/s neg for abscess -cont to follow Hypertension - cont amlodipine, Lasix, Coreg, and hydralazine. Cognitive disability-cog eval Hypothyroidism-levothyroxine. Suspected mood disorder - pt very withdrawn. I requested psych consult from [facility] to assist with mood disorder and opinion re: decisional capacity -will place medical detainer as I don't think she is making appropriate decisions to leave AMA -note pt also stated she would rather than have dialysis DVT prophylaxis - SCD's, no heparin or Lovenox in light of bleeding. Disposition- cont inpt, patient appears to have good family support likely could be discharged back under care with her family once medically ready. Subjective: Pt feels ok. Denies CP or SOB. Vomited once this am, feels better now. Takig po. No fevers. Denies pain. She is withdrawn and frequently pulls blanket over her head. Objective: Vital Signs Temp Pulse Resp BP Pulse Ox 36.8 C 77 18 128/71 H 93 08/07/18 08:00 08/07/18 09:19 08/07/18 05:05 08/07/18 09:19 08/07/18 08:00 Laboratory Results 08/07/18 10:00 08/07/18 10:00 08/06/18 08/07/18 08/08/18 05:59 05:59 05:59 Intake Total 1500 660 Output Total 2300 2750 Balance -800 -2090 PT 14.3 SEC (12.0-15.0) 08/02/18 04:05 INR 1.09 (0.83-1.16) 08/02/18 04:05 - Physical Exam Constitutional: no apparent distress Eyes: PERRL Ears, Nose, Mouth, Throat: moist mucous membranes Cardiovascular: regular rate and rhythym Respiratory: no respiratory distress, clear to auscultation Gastrointestinal: normoactive bowel sounds, soft, non-tender abdomen Skin: warm Musculoskeletal: full muscle strength Neurologic: AAOx3 Psychiatric: interacting appropriately ICD10 Worksheet Patient Problems: Problems Problem Status Onset Acute on chronic renal failure Acute Community acquired pneumonia Acute Hypertensive cardiomegaly Acute Hypokalemia Acute Hyponatremia Acute Influenza A Acute Normocytic anemia, not due to blood loss Acute Dehydration Acute Renal insufficiency Acute
--- NOTE | 2018-08-07 14:46 | ASMTCMCOM ---
CM Note CM Note Notes: [facility] worker came today, reports family says they can help with home health services and said they didn't need services at this time. Should needs arise in the future, [facility] said we would have to send a new referral. Speech therapy conducted cognitive eval today, pt is decisional. Psych here today. [facility] will continue to follow. CM to follow. Plan: likely independent with family supports and outpatient follow-up as indicated. Date Signed: 08/07/2018 02:45 PM Electronically Signed By:VENITA Blum
[2018-08-08] MEDS: LEVOTHYROXINE 150 MCG TAB PO SCH (05:06)
--- NOTE | 2018-08-08 09:31 | SOAPPROG ---
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, nothing to treat at this time probably some ATN that will hopefully recover Plan: Long discussion with family via asl interpreter, father, mother and patient were present.discussed options no dialysis and see if kidneys recover, if they do not recover and she chooses not to do dialysis she will start dialysis and be compliant with therapy and meds, use dialysis as a bridge to transplantation start dialysis and if she decides not to continue; without renal recovery, she will biopsy back, see above continue fluid restriction Father just talked with me, she has decided to start HD, will place tunneled HD cath interview was done with an asl interpreter 08/07/18 09:19 08/08/18 09:24 Subjective: frightened about her future no cp sob nausea or vomiting anxious slept OK appetite OK energy good still with some back pain Objective: Vital Signs Temp Pulse Resp BP Pulse Ox 36.3 C 82 18 126/77 H 99 08/08/18 07:37 08/08/18 07:37 08/08/18 07:37 08/08/18 07:37 08/08/18 07:37 Laboratory Results 08/07/18 10:00 08/07/18 10:00 08/07/18 08/08/18 08/09/18 05:59 05:59 05:59 Intake Total 660 1050 Output Total 2750 2600 Balance -2090 -1550 PT 14.3 SEC (12.0-15.0) 08/02/18 04:05 INR 1.09 (0.83-1.16) 08/02/18 04:05 Physical Exam - Physical Exam General Appearance: alert Neck: normal inspection Respiratory: normal breath sounds, wheezing, No rhonchi, No pleural rub Cardiac/Chest: regular rate, rhythm, edema, No friction rub Abdomen: normal bowel sounds, non-tender, soft Skin: warm/dry Extremities: swelling Neuro/Psych: alert, oriented x 3 ICD10 Worksheet Patient Problems: Problems Problem Status Onset Acute on chronic renal failure Acute Community acquired pneumonia Acute Hypertensive cardiomegaly Acute Hypokalemia Acute Hyponatremia Acute Influenza A Acute Normocytic anemia, not due to blood loss Acute Dehydration Acute Renal insufficiency Acute
[2018-08-08] MEDS: FUROSEMIDE 80 MG TAB PO SCH ×2 (10:06→17:52)
[2018-08-08] MEDS: SEVELAMER HCL 800 MG TAB PO SCH ×3 (10:06→19:00)
[2018-08-08] MEDS: amLODIPine BESYLATE 5 MG TAB PO SCH ×3 (10:06→23:44)
[2018-08-08] MEDS: FERROUS SULFATE 325 MG TAB PO SCH (10:06)
[2018-08-08] MEDS: CARVEDILOL 25 MG TAB PO SCH ×2 (10:06→18:59)
[2018-08-08] MEDS ORDERED: MEPERIDINE 25 MG/ML SYR IVP PRN (10:46)
[2018-08-08] MEDS ORDERED: fentaNYL 100 MCG/2 ML INJ IVP PRN (10:46)
[2018-08-08] MEDS ORDERED: HEPARIN 10,000 UNIT/10 ML MDV (1,000 UNIT/ML) IVP PRN (10:46)
[2018-08-08] MEDS ORDERED: MIDAZOLAM 2 MG/2 ML VIAL IVP PRN (10:46)
[2018-08-08] MEDS ORDERED: ceFAZolin 2 GM/DEXTROSE 100 ML IV ONE ×2 (10:46→14:15)
[2018-08-08] MEDS ORDERED: NALOXONE HCL 0.4 MG/ML INJ IVP PRN (10:46)
[2018-08-08] MEDS ORDERED: FLUMAZENIL 0.5 MG/5 ML MDV IVP PRN (10:46)
[2018-08-08] MEDS ORDERED: NS 1,000 ML IV SCH (11:00)
[2018-08-08 11:07] LABS: PLATELET COUNT 702 10^3/uL (150-400)
[2018-08-08 11:16] LABS: INR 1.28 (0.83-1.16); PROTIME(PATIENT) 16.2 SEC (12.0-15.0)
[2018-08-08] MEDS ORDERED: FLUMAZENIL 0.5 MG/5 ML MDV IVP ONE (13:53)
[2018-08-08] MEDS ORDERED: NALOXONE HCL 0.4 MG/ML INJ ONE (13:53)
[2018-08-08] MEDS ORDERED: MIDAZOLAM 2 MG/2 ML VIAL ONE (13:53)
[2018-08-08] MEDS ORDERED: fentaNYL 100 MCG/2 ML INJ ONE (13:54)
[2018-08-08] MEDS ORDERED: ONDANSETRON 4 MG/2 ML VIAL IVP PRN (16:39)
--- NOTE | 2018-08-08 16:40 | PDHPUP ---
History & Physical Update H&P update statement: This history and physical update is based on an assessment of the patient which was completed after admission or registration (within 24 hours), but prior to the surgery/procedure. Plan for Tunnelled HD Catheter placement H&P update: H&P reviewed & patient examined, no change in patient's condition since H&P completed
--- NOTE | 2018-08-08 16:41 | PDRADPN ---
Radiology Procedure Note Date of Procedure: 08/08/18 Radiologist: Shekhar Nam Anesthesia: IV Sedation Pre-op Diagnosis: renal failure Post-op Diagnosis: renal failure Indication: renal failure Procedure: Tunneled HD catheter placement Finding(s): Patent right IJ. 14.5 Fr HD catheter placed and ready for use. Inf/Abcess present in the surg proc area at time of surgery?: No
--- NOTE | 2018-08-08 17:01 | ASMTCMCOM ---
CM Note CM Note Notes: CM discussed pt during rounds and with Psychiatrist. MD submit order for palliative. Needs rounder to meet with her . Pt will be discharged on dialysis, CM will need to arrange as indicated by nephrology. Pt is enrolled in [facility]. [facility] unable to provide services at this time. Psychiatry recommending providing family with crisis service numbers upon discharge and legal support assistant phone number. She is also recomending arranging follow-up services with [facility] due to cognitive limitations and family concerns of people taking advantage of pt and poor decision making. Psychiatry is looking for testing that pt obtained in school. CM left message with [employer]. CM branch logistics supervisor notified. Pt needs assistance obtaining link to Neuropsych testing. Dr. Francisco recommends [facility] [facility] [place] may be helpful. If they are unable, she reports a f/u appt with [facility] could allow for them to make a recommendation for [facility], as they do not take insurance. CM to follow. Plan: TBD Date Signed: 08/08/2018 05:01 PM Electronically Signed By:VENITA Blum
[2018-08-08] MEDS ORDERED: HYDROmorphONE/DILAUDID 1 MG/ML INJ IVP PRN (17:07)
--- NOTE | 2018-08-08 17:12 | HOSPPROG ---
Hospitalist Progress Note Assessment/Plan: * Influenza A s/p Tamiflu * Acute on chronic kidney failure - likely due to HTN and poor compliance -may have an element of ATN -creatinine continues to increase - suspect ESRD -initiate hemodialysis * Nephrotic syndrome * Hyponatremia -fluid restrict * ABL anemia due to hematoma post renal biopsy s/p embolization -H/H stable * Acute systolic CHF - EF 40% * HTN -continue coreg + amlodipine * Developmental delay, possible mood disorder -seen by Dr. Francisco today -did okay on cog eval - felt to be decisional Subjective: Very withdrawn but did sign consent for catheter Objective: Vital Signs Temp Pulse Resp BP Pulse Ox 36.7 C 80 16 133/76 H 96 08/08/18 16:49 08/08/18 16:49 08/08/18 16:49 08/08/18 16:49 08/08/18 16:54 Laboratory Results 08/08/18 11:00 08/08/18 11:00 08/07/18 08/08/18 08/09/18 05:59 05:59 05:59 Intake Total 660 1050 Output Total 2750 2600 Balance -2090 -1550 PT 16.2 SEC (12.0-15.0) H 08/08/18 11:00 INR 1.28 (0.83-1.16) H 08/08/18 11:00 - Physical Exam Constitutional: no apparent distress, appears nourished, not in pain Cardiovascular: regular rate and rhythym, no murmur, rub, or gallop Respiratory: no respiratory distress, no rales or rhonchi, clear to auscultation Gastrointestinal: normoactive bowel sounds, soft, non-tender abdomen, no palpable masses Skin: no rashes or abrasions, no fluctuance, no induration Neurologic: AAOx3, sensation intact bilaterally Psychiatric: depressed, flat affect, other (very withdrawn, this is baseline per family), No encephalopathic, No anxious, No agitated ICD10 Worksheet Patient Problems: Problems Problem Status Onset Dehydration Acute Renal insufficiency Acute Community acquired pneumonia Acute Normocytic anemia, not due to blood loss Acute Acute on chronic renal failure Acute Hypokalemia Acute Hyponatremia Acute Hypertensive cardiomegaly Acute Influenza A Acute
[2018-08-08] MEDS ORDERED: SODIUM CITRATE 4% 5 ML in SYRINGE 0 ML DIAL ONE (21:30)
[2018-08-08] MEDS ORDERED: NS 500 ML IV PRN (21:30)
[2018-08-08] MEDS: OXYCODONE/APAP 5/325 TAB PO PRN (23:44)
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
[2018-08-09 05:04] LABS: PLATELET COUNT 698 10^3/uL (150-400)
[2018-08-09] MEDS: LEVOTHYROXINE 150 MCG TAB PO SCH (05:51)
[2018-08-09] MEDS: SEVELAMER HCL 800 MG TAB PO SCH ×3 (09:25→17:27)
[2018-08-09] MEDS: FERROUS SULFATE 325 MG TAB PO SCH (09:25)
[2018-08-09] MEDS: FUROSEMIDE 80 MG TAB PO SCH ×2 (09:25→17:27)
[2018-08-09] MEDS: amLODIPine BESYLATE 5 MG TAB PO SCH ×2 (09:26→21:30)
[2018-08-09] MEDS: CARVEDILOL 25 MG TAB PO SCH ×2 (09:26→17:28)
--- NOTE | 2018-08-09 10:54 | SOAPPROG ---
SOAP Progress Note Assessment/Plan: Assessment/Plan: CEDRIC on CKD 3: baseline Cr was 2 last year, now up to 6 with nephrotic range proteinuria. Biopsy done and unfortunately no IF or EM done, but light microscopy consistent with advanced TMA that is not going to improve with treatment at this time, likely going to be ESRD. - HD #1 yesterday. - HD #2 today, HD #3 tomorrow. HTN: BP markedly improved on current meds, will continue to monitor. Anemia: s/p bleed from renal biopsy requiring IR intervention and embolization along with transfusions. Hgb 6.9 today, would recommend further PRBCs transfusion. Hyponatremia: will modulate on HD. Hypokalemia: will modulate on HD. Hyperphosphatemia: pt on sevelamer, will continue to monitor. Subjective: No acute events overnight. Pt states that she is feeling tired. She tolerated HD fine yesterday. She has no other complaints today. Objective: Vital Signs Temp Pulse Resp BP Pulse Ox 37.4 C 86 16 149/96 H 95 08/09/18 07:24 08/09/18 07:24 08/09/18 07:24 08/09/18 07:24 08/09/18 07:24 Laboratory Results 08/09/18 04:54 08/09/18 04:54 08/08/18 08/09/18 08/10/18 05:59 05:59 05:59 Intake Total 1050 300 Output Total 2600 2000 900 Balance -1550 -1700 -900 PT 16.2 SEC (12.0-15.0) H 08/08/18 11:00 INR 1.28 (0.83-1.16) H 08/08/18 11:00 General: alert and oriented, no acute distress Eyes: EOMI, PERRL OP: Clear CV: RRR Resp: nonlabored respirations Abd: Soft, NT/ND Ext: trace edema BLE Neuro: CN II-XII Grossly intact Psych: cooperative Access: RIJ tunneled catheter ICD10 Worksheet Patient Problems: Problems Problem Status Onset Acute on chronic renal failure Acute Community acquired pneumonia Acute Hypertensive cardiomegaly Acute Hypokalemia Acute Hyponatremia Acute Influenza A Acute Normocytic anemia, not due to blood loss Acute Dehydration Acute Renal insufficiency Acute
[2018-08-09] MEDS ORDERED: BISACODYL 10 MG SUPP PR PRN (13:12)
[2018-08-09] MEDS ORDERED: MAGNESIUM HYDROXIDE 30 ML UDCUP PO PRN (13:12)
[2018-08-09] MEDS ORDERED: POLYETHYLENE GLYCOL 3350 17 GM PKT PO PRN (13:12)
[2018-08-09] MEDS ORDERED: LACTULOSE 20 GM/30 ML UDCUP PO PRN (13:12)
[2018-08-09] MEDS ORDERED: SODIUM CITRATE 4% 5 ML in SYRINGE 0 ML DIAL ONE (15:45)
--- NOTE | 2018-08-09 17:29 | HOSPPROG ---
Hospitalist Progress Note Assessment/Plan: * Influenza A s/p Tamiflu * Acute on chronic kidney failure - likely due to HTN and poor compliance -may have an element of ATN, although likely ESRD -pathology - chronic thrombotic microangiopathy -initiating hemodialysis * Nephrotic syndrome * Hyponatremia -fluid restrict * ABL anemia due to hematoma post renal biopsy s/p embolization -transfuse 1 unit today * Acute systolic CHF - EF 40% * HTN -continue coreg + amlodipine * Developmental delay, query undiagnosed autism? -outpatient neuropsychologic testing -is at baseline and decisional -[facility] Subjective: No new complaints, tearful at times, agreeable to all recommended therapies Objective: Vital Signs Temp Pulse Resp BP Pulse Ox 36.8 C 83 20 143/92 H 95 08/09/18 16:00 08/09/18 16:00 08/09/18 16:00 08/09/18 16:00 08/09/18 16:00 Laboratory Results 08/09/18 04:54 08/09/18 04:54 08/08/18 08/09/18 08/10/18 05:59 05:59 05:59 Intake Total 1050 300 320 Output Total 2600 2000 900 Balance -1550 -1700 -580 PT 16.2 SEC (12.0-15.0) H 08/08/18 11:00 INR 1.28 (0.83-1.16) H 08/08/18 11:00 - Time Spent With Patient Time Spent with Patient: greater than 35 minutes (coordinating care with Dr. Mccormick, site interpreter and case management, Dr. Francisco consultation reviewed) Time Spent with Patient: Greater than 35 minutes spent on this patients care, greater than 50% of time spent counseling, educating, and coordinating care regarding the above mentioned plan. - Physical Exam Constitutional: no apparent distress, appears nourished, not in pain Cardiovascular: regular rate and rhythym, no murmur, rub, or gallop Respiratory: no respiratory distress, no rales or rhonchi, clear to auscultation Gastrointestinal: normoactive bowel sounds, soft, non-tender abdomen, no palpable masses Skin: no rashes or abrasions, no fluctuance, no induration Neurologic: AAOx3, sensation intact bilaterally Psychiatric: interacting appropriately, not anxious, not encephalopathic, thought process linear ICD10 Worksheet Patient Problems: Problems Problem Status Onset Dehydration Acute Renal insufficiency Acute Community acquired pneumonia Acute Normocytic anemia, not due to blood loss Acute Acute on chronic renal failure Acute Hypokalemia Acute Hyponatremia Acute Hypertensive cardiomegaly Acute Influenza A Acute
[2018-08-09] MEDS: SENNOSIDES/DOCUSATE SODIUM TAB PO SCH (21:29)
[2018-08-10 08:59] LABS: PLATELET COUNT 686 10^3/uL (150-400)
[2018-08-10] MEDS: LEVOTHYROXINE 150 MCG TAB PO SCH (10:50)
[2018-08-10] MEDS: CARVEDILOL 25 MG TAB PO SCH ×2 (10:50→18:47)
[2018-08-10] MEDS: SENNOSIDES/DOCUSATE SODIUM TAB PO SCH ×2 (10:51→20:52)
[2018-08-10] MEDS: amLODIPine BESYLATE 5 MG TAB PO SCH ×2 (10:51→20:52)
[2018-08-10] MEDS: FUROSEMIDE 80 MG TAB PO SCH ×2 (10:51→15:46)
[2018-08-10] MEDS: FERROUS SULFATE 325 MG TAB PO SCH (10:52)
[2018-08-10] MEDS: SEVELAMER HCL 800 MG TAB PO SCH ×3 (15:46→18:47)
--- NOTE | 2018-08-10 16:30 | HOSPPROG ---
Hospitalist Progress Note Assessment/Plan: * Influenza A s/p Tamiflu * Acute on chronic kidney failure - likely due to HTN and poor compliance -may have an element of ATN, although likely ESRD -pathology - chronic thrombotic microangiopathy -initiating hemodialysis * Nephrotic syndrome * Hyponatremia -fluid restrict * ABL anemia due to hematoma post renal biopsy s/p embolization -s/p transfusion * Acute systolic CHF - EF 40% -due to hypertensive heart disease vs. viral -ischemia felt highly unlikely -f/u cardiology outpatient -seen by Dr. Parish earlier this admit * HTN -continue coreg + amlodipine + hydralazine * Developmental delay, query undiagnosed autism? -outpatient neuropsychologic testing -is at baseline and decisional -[facility] Subjective: States repeatedly "I want to go home" Objective: Vital Signs Temp Pulse Resp BP Pulse Ox 37.4 C 73 16 142/82 H 97 08/10/18 15:47 08/10/18 15:47 08/10/18 15:47 08/10/18 15:47 08/10/18 15:47 Laboratory Results 08/10/18 08:13 08/10/18 08:13 08/09/18 08/10/18 08/11/18 05:59 05:59 05:59 Intake Total 300 820 Output Total 2000 900 1000 Balance -1700 -80 -1000 PT 16.2 SEC (12.0-15.0) H 08/08/18 11:00 INR 1.28 (0.83-1.16) H 08/08/18 11:00 Old chart reviewed regarding cardiology consult earlier this stay - they signed off, no ischemic eval recommended ECHO reviewed - EF 40% ICD10 Worksheet Patient Problems: Problems Problem Status Onset Dehydration Acute Renal insufficiency Acute Community acquired pneumonia Acute Normocytic anemia, not due to blood loss Acute Acute on chronic renal failure Acute Hypokalemia Acute Hyponatremia Acute Hypertensive cardiomegaly Acute Influenza A Acute
--- NOTE | 2018-08-10 18:56 | SOAPPROG ---
SOAP Progress Note Assessment/Plan: Assessment: 1. CEDRIC on CKD 3: baseline Cr was 2 last year, now up to 6 with nephrotic range proteinuria. Biopsy done and unfortunately no IF or EM done, but light microscopy consistent with advanced TMA that is not going to improve with treatment at this time, likely going to be ESRD. - HD #1 08/08 - HD #2 08/09, #3 08/10 -Rest tomorrow then resume HD the next day -TDC exit-site appears non-infected, biopatch in place, observe for any Si/Sx of infection, educated on need to avoid getting area wet 2. HTN: BP improved on current meds, will continue to monitor. 3. Anemia: s/p bleed from renal biopsy requiring IR intervention and embolization along with transfusions. Hgb 6.9 08/09, improved s/p RBCs 4. Hyponatremia: Improving with HD. 5. Hypokalemia: Improving with HD. 6. Hyperphosphatemia: -Improving on sevelamer, will continue to monitor. Plan: 08/10/18 18:53 08/10/18 18:56 08/10/18 18:56 Subjective: Tolerated HD well today. Took shower last night without dressing over TDC. Mild tenderness in area. Objective: Vital Signs Temp Pulse Resp BP Pulse Ox 37.4 C 73 16 142/82 H 97 08/10/18 15:47 08/10/18 15:47 08/10/18 15:47 08/10/18 15:47 08/10/18 15:47 Laboratory Results 08/10/18 08:13 08/10/18 08:13 08/09/18 08/10/18 08/11/18 05:59 05:59 05:59 Intake Total 300 820 0 Output Total 2000 900 1000 Balance -1700 -80 -1000 PT 16.2 SEC (12.0-15.0) H 08/08/18 11:00 INR 1.28 (0.83-1.16) H 08/08/18 11:00 Physical Exam - Physical Exam General Appearance: WD/WN, no apparent distress Neck: other (R IJ TDC in place, no exit-site erythema) Cardiac/Chest: regular rate, rhythm Abdomen: non-tender, soft Extremities: No swelling ICD10 Worksheet Patient Problems: Problems Problem Status Onset Acute on chronic renal failure Acute Community acquired pneumonia Acute Hypertensive cardiomegaly Acute Hypokalemia Acute Hyponatremia Acute Influenza A Acute Normocytic anemia, not due to blood loss Acute Dehydration Acute Renal insufficiency Acute
[2018-08-10] MEDS ORDERED: HEPARIN 50,000 UNIT/10 ML VIAL ONE (19:20)
[2018-08-10] MEDS: OXYCODONE/APAP 5/325 TAB PO PRN (20:51)
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
[2018-08-11] MEDS ORDERED: OXYCODONE/APAP 5/325 TAB PO PRN (08:48)
[2018-08-11] MEDS: LEVOTHYROXINE 150 MCG TAB PO SCH (09:04)
[2018-08-11] MEDS: SENNOSIDES/DOCUSATE SODIUM TAB PO SCH ×2 (09:05→21:30)
[2018-08-11] MEDS: FERROUS SULFATE 325 MG TAB PO SCH (09:05)
[2018-08-11] MEDS: amLODIPine BESYLATE 5 MG TAB PO SCH ×2 (09:05→20:22)
[2018-08-11] MEDS: CARVEDILOL 25 MG TAB PO SCH ×2 (09:05→17:58)
[2018-08-11] MEDS: FUROSEMIDE 80 MG TAB PO SCH ×2 (09:05→15:55)
[2018-08-11] MEDS: SEVELAMER HCL 800 MG TAB PO SCH ×3 (09:06→20:21)
--- NOTE | 2018-08-11 10:52 | HOSPPROG ---
Hospitalist Progress Note Assessment/Plan: 35 yo F w htn a/w influenza A and acute on chronic renal failure, htn Influenza A s/p Tamiflu probably reasonable to dc droplet precautions Acute on chronic kidney failure - likely due to HTN and poor compliance -may have an element of ATN, although likely ESRD -pathology - chronic thrombotic microangiopathy -initiating hemodialysis Nephrotic syndrome Hyponatremia -fluid restrict ABL anemia due to hematoma post renal biopsy s/p embolization -s/p transfusion Acute systolic CHF - EF 40% -due to hypertensive heart disease vs. viral -ischemia felt highly unlikely -f/u cardiology outpatient -seen by Dr. Parish earlier this admit HTN -continue coreg + amlodipine + hydralazine Developmental delay, query undiagnosed autism? -outpatient neuropsychologic testing -is at baseline and decisional -[facility] Subjective: case d/w renal MD. HD yesterday. influenza sx have resolved Objective: Vital Signs Temp Pulse Resp BP Pulse Ox 36.7 C 78 18 135/85 H 98 08/11/18 08:00 08/11/18 09:05 08/11/18 08:00 08/11/18 09:05 08/11/18 08:00 Laboratory Results 08/10/18 08:13 08/11/18 08:16 08/10/18 08/11/18 08/12/18 05:59 05:59 05:59 Intake Total 820 250 Output Total 900 1000 Balance -80 -750 PT 16.2 SEC (12.0-15.0) H 08/08/18 11:00 INR 1.28 (0.83-1.16) H 08/08/18 11:00 - Physical Exam Constitutional: no apparent distress, appears nourished Eyes: PERRL, anicteric sclera Ears, Nose, Mouth, Throat: moist mucous membranes, hearing normal Cardiovascular: regular rate and rhythym, no murmur, rub, or gallop, other (HD line c/d/i), No edema Respiratory: no respiratory distress, no rales or rhonchi Gastrointestinal: normoactive bowel sounds, soft, non-tender abdomen Genitourinary: no bladder fullness, No oliveira in urethra Skin: warm, normal color Musculoskeletal: full muscle strength, no muscle tenderness Neurologic: AAOx3, sensation intact bilaterally Psychiatric: interacting appropriately, not anxious Lymph, Heme, Immunologic: no cervical LAD, no supraclavicular LAD ICD10 Worksheet Patient Problems: Problems Problem Status Onset Acute on chronic renal failure Acute Community acquired pneumonia Acute Hypertensive cardiomegaly Acute Hypokalemia Acute Hyponatremia Acute Influenza A Acute Normocytic anemia, not due to blood loss Acute Dehydration Acute Renal insufficiency Acute
--- NOTE | 2018-08-11 11:28 | SOAPPROG ---
SOAP Progress Note Assessment/Plan: Assessment: 1. CEDRIC on CKD 3: baseline Cr was 2 last year, now up to 6 with nephrotic range proteinuria. Biopsy done and unfortunately no IF or EM done, but light microscopy consistent with advanced TMA that is not going to improve with treatment at this time, likely going to be ESRD. - HD #1 08/08 - HD #2 08/09, #3 08/10 -Resume HD tomorrow -TDC exit-site appears non-infected, biopatch in place, observe for any Si/Sx of infection, educated on need to avoid getting area wet in shower or otherwise 2. HTN: BP improved on current meds, will continue to monitor. 3. Anemia: s/p bleed from renal biopsy requiring IR intervention and embolization along with transfusions. Hgb 6.9 08/09, improved s/p RBCs 4. Hyponatremia: Improving with HD. 5. Hypokalemia: Improving with HD. 6. Hyperphosphatemia: -Improving on sevelamer, will continue to monitor. Plan: Subjective: Feels ok. No complaints. Objective: Vital Signs Temp Pulse Resp BP Pulse Ox 36.7 C 78 18 135/85 H 98 08/11/18 08:00 08/11/18 09:05 08/11/18 08:00 08/11/18 09:05 08/11/18 08:00 Laboratory Results 08/10/18 08:13 08/11/18 08:16 08/10/18 08/11/18 08/12/18 05:59 05:59 05:59 Intake Total 820 250 Output Total 900 1000 Balance -80 -750 PT 16.2 SEC (12.0-15.0) H 08/08/18 11:00 INR 1.28 (0.83-1.16) H 08/08/18 11:00 Physical Exam - Physical Exam General Appearance: WD/WN, alert, no apparent distress Neck: other (R IJ TDC, no exit-site erythema) ICD10 Worksheet Patient Problems: Problems Problem Status Onset Acute on chronic renal failure Acute Community acquired pneumonia Acute Hypertensive cardiomegaly Acute Hypokalemia Acute Hyponatremia Acute Influenza A Acute Normocytic anemia, not due to blood loss Acute Dehydration Acute Renal insufficiency Acute
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
[2018-08-12] MEDS: LEVOTHYROXINE 150 MCG TAB PO SCH (07:10)
--- NOTE | 2018-08-12 10:04 | SOAPPROG ---
SOAP Progress Note Assessment/Plan: Assessment/Plan: CEDRIC on CKD 3: baseline Cr was 2 last year, now up to 6 with nephrotic range proteinuria. Biopsy done and unfortunately no IF or EM done, but light microscopy consistent with advanced TMA that is not going to improve with treatment at this time, likely going to be ESRD. - HD today. - Will discuss with CM today about setting up outpatient dialysis at [facility] starting on Sunday. HTN: BP markedly improved on current meds, will continue to monitor. Anemia: s/p bleed from renal biopsy requiring IR intervention and embolization along with transfusions. Pt will get iron and epo at outpatient dialysis unit. Hyponatremia: will modulate on HD. Hyperphosphatemia: pt on sevelamer, will continue to monitor. Subjective: No acute events overnight. Pt on HD this am and tolerating fine. She wants to go home. Objective: Vital Signs Temp Pulse Resp BP Pulse Ox 36.5 C 74 16 145/98 H 99 08/12/18 07:45 08/12/18 07:45 08/11/18 20:16 08/12/18 07:45 08/12/18 07:45 Laboratory Results 08/10/18 08:13 08/12/18 07:53 08/11/18 08/12/18 08/13/18 05:59 05:59 05:59 Intake Total 250 850 Output Total 1000 Balance -750 850 PT 16.2 SEC (12.0-15.0) H 08/08/18 11:00 INR 1.28 (0.83-1.16) H 08/08/18 11:00 General: alert and oriented, no acute distress Eyes: EOMI, PERRL OP: Clear CV: RRR Resp: nonlabored respirations on RA Abd: Soft, NT/ND Ext: no edema BLE Neuro: CN II-XII Grossly intact Psych: cooperative Access: RIJ tunneled catheter ICD10 Worksheet Patient Problems: Problems Problem Status Onset Acute on chronic renal failure Acute Community acquired pneumonia Acute Hypertensive cardiomegaly Acute Hypokalemia Acute Hyponatremia Acute Influenza A Acute Normocytic anemia, not due to blood loss Acute Dehydration Acute Renal insufficiency Acute
[2018-08-12] MEDS: CARVEDILOL 25 MG TAB PO SCH ×2 (12:30→17:47)
[2018-08-12] MEDS: amLODIPine BESYLATE 5 MG TAB PO SCH (12:31)
[2018-08-12] MEDS: FUROSEMIDE 80 MG TAB PO SCH ×2 (12:31→15:50)
[2018-08-12] MEDS: SEVELAMER HCL 800 MG TAB PO SCH ×3 (12:31→17:47)
[2018-08-12] MEDS: FERROUS SULFATE 325 MG TAB PO SCH (12:31)
[2018-08-12] MEDS: SENNOSIDES/DOCUSATE SODIUM TAB PO SCH (12:32)
--- NOTE | 2018-08-12 14:24 | HOSPPROG ---
Hospitalist Progress Note Assessment/Plan: 35 yo F w htn a/w influenza A and acute on chronic renal failure, htn Influenza A s/p Tamiflu probably reasonable to dc droplet precautions Acute on chronic kidney failure - likely due to HTN and poor compliance -may have an element of ATN, although likely ESRD -pathology - chronic thrombotic microangiopathy -initiating hemodialysis Nephrotic syndrome Hyponatremia resolved ABL anemia due to hematoma post renal biopsy s/p embolization -s/p transfusion Acute systolic CHF - EF 40% -due to hypertensive heart disease vs. viral -ischemia felt highly unlikely -f/u cardiology outpatient -seen by Dr. Parish earlier this admit HTN -continue coreg + amlodipine + hydralazine Developmental delay, query undiagnosed autism? -outpatient neuropsychologic testing -is at baseline and decisional -[facility] to [facility] as [facility] Subjective: case d/w dr sanford. no complaints Objective: Vital Signs Temp Pulse Resp BP Pulse Ox 36.5 C 63 16 141/100 H 99 08/12/18 07:45 08/12/18 12:30 08/11/18 20:16 08/12/18 12:35 08/12/18 07:45 Laboratory Results 08/10/18 08:13 08/12/18 07:53 08/11/18 08/12/18 08/13/18 05:59 05:59 05:59 Intake Total 250 850 250 Output Total 1000 400 Balance -750 850 -150 PT 16.2 SEC (12.0-15.0) H 08/08/18 11:00 INR 1.28 (0.83-1.16) H 08/08/18 11:00 - Physical Exam Constitutional: no apparent distress, appears nourished Eyes: PERRL, anicteric sclera Ears, Nose, Mouth, Throat: moist mucous membranes, hearing normal Cardiovascular: regular rate and rhythym, no murmur, rub, or gallop Respiratory: no respiratory distress, no rales or rhonchi Gastrointestinal: normoactive bowel sounds, soft, non-tender abdomen Genitourinary: no bladder fullness, No oliveira in urethra Skin: warm, normal color Musculoskeletal: full muscle strength Neurologic: AAOx3 Psychiatric: interacting appropriately ICD10 Worksheet Patient Problems: Problems Problem Status Onset Acute on chronic renal failure Acute Community acquired pneumonia Acute Hypertensive cardiomegaly Acute Hypokalemia Acute Hyponatremia Acute Influenza A Acute Normocytic anemia, not due to blood loss Acute Dehydration Acute Renal insufficiency Acute
--- NOTE | 2018-08-12 15:52 | ASMTDCNOTE ---
Case Management Discharge Discharge Order Complete? Answers: Yes Patient to Obtain Answers: via Family Medications Transportation Arranged Answers: Family/Friends Faxed Final Orders Answers: Yes Agency/Facility Transfer Answers: Yes Report Printed & Faxed to Receiving Agency Family Notified Answers: Yes Discharge Comments Notes: GRACIELA spoke with pt's father with the brewery pumper this morning. He provided additional information needed for [facility] application. CM faxed ppwk and provided family with copy and follow-up phone numbers. GRACIELA provided family with hand rug braider phone numbers and Crisis services phone numbers. [facility] CM notified [facility] of discharge and that family wanted to speak with them. Abbie came to speak with family. GRACIELA scheduled dialysis to start at [facility] for 2:15pm on 08/14/18. Dr Mccormick submit orders to [facility]. GRACIELA made multiple attempts to call [facility] to schedule outpatient appt, but the office was closed for the holiday today. CM provided pt's family information about scheduling follow-up appt at [facility]. They are informed that intake information was already faxed last week. Pt will also [facility], family agreeable. GRACIELA attempted to schedule appt but clinic was closed due to holiday. Pt and family is aware of plan. No other concerns noted. Family to transport. Date Signed: 08/12/2018 03:51 PM Electronically Signed By:VENITA Blum
--- NOTE | 2018-08-12 15:53 | ASMTCMCOM ---
CM Note CM Note Notes: GRACIELA spoke with pt's father with the event planner this morning. He provided additional information needed for [facility] application. CM faxed ppwk and provided family with copy and follow-up phone numbers. CM provided family with case work aide phone numbers and Crisis services phone numbers. [facility] CM notified [facility] of discharge and that family wanted to speak with them. Abbie came to speak with family. GRACIELA scheduled dialysis to start at [facility] for 2:15pm on 08/14/18. Dr Mccormick submit orders to [facility]. GRACIELA made multiple attempts to call [facility] to schedule outpatient appt, but the office was closed for the holiday today. CM provided pt's family information about scheduling follow-up appt at [facility]. They are informed that intake information was already faxed last week. Pt will also schedule [facility], family agreeable. CM attempted to schedule appt but clinic was closed due to holiday. Pt and family is aware of plan. No other concerns noted. Family to transport. Date Signed: 08/12/2018 03:49 PM Electronically Signed By:VENITA Blum
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
[2018-08-12 17:48] VITALS: BP 132/88
[2018-08-12] MEDS ORDERED: HEPARIN 50,000 UNIT/10 ML VIAL DIAL ONE (17:55)
--- NOTE | 2018-08-13 14:56 | ASMTCMCOM ---
CM Note CM Note Notes: CM called and scheduled pt follow-up appts at [facility]: August 20 at 9:25am at [facility], ([phone]). [facility]: [phone] Appt for 08/06/18 at 2:30pm at [address] in [place]. Pt's dad was on unit picking up prescription from [employer] and CM provided with [facility] appt and then Operating Systems Programmer called pt's father with [facility] appt. CM spoke with [facility] and they are aware of plan and going to continue to work with pt and family in the community to establish appropriate follow-up. Date Signed: 08/13/2018 02:55 PM Electronically Signed By:VENITA Blum
--- NOTE | 2018-08-21 12:21 | GDS ---
[f rep st] DISCHARGE SUMMARY DISCHARGE DIAGNOSES: 1. Influenza A. 2. Hypertensive nephropathy with likely end-stage renal disease. 3. Hypertension with left ventricular hypertrophy. 4. Mildly reduced left ventricular systolic function without symptoms of systolic heart failure. 5. Diastolic dysfunction. 6. Pulmonary artery hypertension. Please see admission history and physical by Dr. Montrell Colon. The patient presented to the hospital on the with lower extremity swelling with cough and shortness of breath and abdominal bl oating. She was found to be markedly hypertensive on presentation with blood pressures of 160/120. She had an elevated creatinine of 4.0 on presentation and trended up. While here she was diuresed. She was seen by Nephrology, Cardiology. She had a renal biopsy which was not elucidative for the cau se and did not show active inflammation. Thought was that the patient has long-standing untreated hy pertensive nephropathy. The patient initiated dialysis with improvement in her volume status and blo od pressure. She was treated for Influenza A. She was established on her outpatient antihypertensiv e regimen and additionally was connected with outpatient support services. She has likely developmen alexia delay including /[id number]/MODL
--- NOTE | 2018-08-21 18:09 | CPEKG ---
Test Reason : OPEN Blood Pressure : / mmHG Vent. Rate : 079 BPM Atrial Rate : 079 BPM P-R Int : 167 ms QRS Dur : 100 ms QT Int : 531 ms P-R-T Axes : 004 015 000 degrees QTc Int : 609 ms Sinus rhythm LVH with secondary repolarization abnormality Prolonged QT interval Confirmed by Tammy Sierra ([id number]) on 08/21/2018 6:08:50 PM Referred By: Confirmed By:Tammy Sierra
== END 2018-08-12 17:56 | disposition home or self-care (01) | DRG 169 ==
LOC: F3E 12:34 → F2W 14:16 → F2N 08-02 19:55 → F1N 08-04 19:56
PROVIDERS: ADMIT Internal Medicine; ATTEND Internal Medicine
DX: I13.0 Hypertensive heart and chronic kidney disease with heart failure and stage 1 through stage 4 chronic kidney disease, or unspecified chronic kidney disease (principal); N18.3 Chronic kidney disease, stage 3 (moderate); I50.21 Acute systolic (congestive) heart failure; J10.00 Influenza due to other identified influenza virus with unspecified type of pneumonia; J18.9 Pneumonia, unspecified organism; N99.820 Postprocedural hemorrhage of a genitourinary system organ or structure following a genitourinary system procedure; D62 Acute posthemorrhagic anemia; E87.6 Hypokalemia; I45.81 Long QT syndrome; R62.59 Other lack of expected normal physiological development in childhood; D63.1 Anemia in chronic kidney disease; E87.1 Hypo-osmolality and hyponatremia; E03.9 Hypothyroidism, unspecified
CPT/HCPCS: 82088-90; 82306-90; 82607-90; 84156-90; 84166-90; 84244-90; 88305-90; 88313-90; 88346-90; 88348-90; 92523-GN; C1760; C1769; C1892; C1894; G0472; J0456; J0690; J0696; J1642; J1644; J1940; J2250; J2310; J2405; J2550; J3010; J3475; P9016; P9040; Q9967